=== PATIENT | male | born 1965 | race Caucasian/White ===

== ENCOUNTER 2020-03-24 10:44 | Outpatient (REF) | payer OTHER, SELFPAY ==
[2020-03-24 14:05] LABS: MANUAL DIFF FLAG NO
[2020-03-24 14:18] LABS: Basophils Percent Auto 0.7 % (0-2); Eosinophils Absolute Auto 0.2 X10*3/uL (0.0-0.4); Eosinophils Percent Auto 3.6 % (0-4); Hematocrit 40.9 % (42-52); Hemoglobin 14.2 g/dl (14.0-18.0); Imm Gran Abs Auto 0.02 X10*3/uL (0.00-0.03); Imm Gran Pct Auto 0.3 % (0.0-0.4); Lymphocytes Absolute Auto 1.7 X10*3/uL (1.2-4.9); Lymphocytes Percent Auto 27.7 % (20-40); Mean Corpuscular HGB Conc 34.7 g/dl (31.0-36.0); Mean Corpuscular Hemoglobin 32.7 pg (27.0-33.0); Mean Corpuscular Volume 94.2 fL (80-98); Mean Platelet Volume 10.2 fL (9.4-12.4); Monocytes Absolute Auto 0.4 X10*3/uL (0.1-1.2); Neutrophils Absolute Auto 3.7 X10*3/uL (2.0-8.3); Neutrophils Percent Auto 60.7 % (45-73); Platelet Count 225 X10*3/uL (160-400); Red Blood Count 4.34 X10*6/uL (4.60-5.80); Red Cell Distribution Width 11.9 % (11.0-16.0); White Blood Count 6.1 X10*3/uL (4.8-10.8)
[2020-03-24 14:34] LABS: Alanine Aminotransferase 40 U/L (0-40); Albumin Level 4.6 g/dL (3.5-5.0); Alkaline Phosphatase 69 U/L (39-117); Anion Gap 14 (12-20); Aspartate Amino Transferase 30 U/L (5-37); Bilirubin Direct 0.3 mg/dL (0.0-0.5); Bilirubin Total 0.9 mg/dL (0.0-1.0); Blood Urea Nitrogen 16 mg/dL (9-16); Calcium 8.9 mg/dL (8.4-10.2); Carbon Dioxide 29 mmol/L (22-29); Chloride 103 mmol/L (96-108); Estimated Glomerular Filt Rate > 60; Glucose Random 109 mg/dL (60-115); Potassium 4.5 mmol/l (3.3-5.1); Sodium 141 mmol/L (135-145); Total Protein 7.1 g/dL (6.5-8.0)
[2020-03-24 15:34] LABS: Vitamin B12 464 pg/mL (200-900)
[2020-03-25 08:55] LABS: SARS COV2 IgG Negative (Negative)
[2020-03-28 13:57] LABS: Vitamin D 25-OH, D2 <4 ng/mL; Vitamin D 25-OH, D3 28 ng/mL; Vitamin D 25-OH, Total 28 ng/mL (30-100)
== END 2020-03-24 10:45 | disposition home or self-care (01) ==
LOC: HO.HMGCLDS 10:44
PROVIDERS: PCP Internal Medicine; Visit Provider Internal Medicine
DX: R53.83 Other fatigue (principal); F41.1 Generalized anxiety disorder; R20.2 Paresthesia of skin; Z20.822 Contact with and (suspected) exposure to COVID-19
CPT/HCPCS: 36415; 80048; 80076; 82306; 82607; 85025; 86769

== ENCOUNTER 2020-08-25 11:07 | Outpatient (REF) | payer OTHER, SELFPAY ==
[2020-08-25 13:51] LABS: MANUAL DIFF FLAG NO
[2020-08-25 14:01] LABS: Basophils Absolute Auto 0.1 X10*3/uL (0.0-0.2); Basophils Percent Auto 0.6 % (0-2); Eosinophils Absolute Auto 0.2 X10*3/uL (0.0-0.4); Eosinophils Percent Auto 2.7 % (0-4); Hematocrit 42.8 % (42-52); Hemoglobin 14.9 g/dl (14.0-18.0); Imm Gran Abs Auto 0.04 X10*3/uL (0.00-0.03); Imm Gran Pct Auto 0.5 % (0.0-0.4); Lymphocytes Absolute Auto 1.9 X10*3/uL (1.2-4.9); Lymphocytes Percent Auto 24.3 % (20-40); Mean Corpuscular HGB Conc 34.8 g/dl (31.0-36.0); Mean Corpuscular Hemoglobin 32.7 pg (27.0-33.0); Mean Corpuscular Volume 94.1 fL (80-98); Mean Platelet Volume 10.4 fL (9.4-12.4); Monocytes Absolute Auto 0.6 X10*3/uL (0.1-1.2); Monocytes Percent Auto 8.1 % (2-11); Neutrophils Absolute Auto 4.9 X10*3/uL (2.0-8.3); Neutrophils Percent Auto 63.8 % (45-73); Platelet Count 224 X10*3/uL (160-400); Red Blood Count 4.55 X10*6/uL (4.60-5.80); Red Cell Distribution Width 12.2 % (11.0-16.0); White Blood Count 7.7 X10*3/uL (4.8-10.8)
[2020-08-25 14:31] LABS: Alanine Aminotransferase 54 U/L (0-40); Albumin Level 4.9 g/dL (3.5-5.0); Alkaline Phosphatase 81 U/L (39-117); Anion Gap 12 (12-20); Aspartate Amino Transferase 37 U/L (5-37); Blood Urea Nitrogen 20 mg/dL (9-16); Calcium 9.7 mg/dL (8.4-10.2); Carbon Dioxide 28 mmol/L (22-29); Chloride 104 mmol/L (96-108); Estimated Glomerular Filt Rate > 60; Glucose Random 102 mg/dL (60-115); Potassium 4.6 mmol/L (3.3-5.1); Sodium 139 mmol/L (135-145); Total Protein 7.7 g/dL (6.5-8.0)
[2020-08-25 14:54] LABS: TSH reflex Free T4 1.33 uIU/mL (0.32-4.0)
[2020-08-25 15:05] LABS: Vitamin B12 462 pg/mL (200-900)
[2020-09-04 18:22] LABS: Vitamin D 25-OH, D2 <4 ng/mL; Vitamin D 25-OH, D3 49 ng/mL; Vitamin D 25-OH, Total 49 ng/mL (30-100)
== END 2020-08-25 11:08 | disposition home or self-care (01) ==
LOC: HO.HMGCLDS 11:07
PROVIDERS: PCP Internal Medicine; Visit Provider Internal Medicine
DX: F41.1 Generalized anxiety disorder (principal); R20.2 Paresthesia of skin; R53.83 Other fatigue
CPT/HCPCS: 36415; 80053; 82306; 82607; 84443; 85025

== ENCOUNTER 2021-01-12 22:24 | Observation (INO) | payer OTHER, SELFPAY ==
--- NOTE | ~2021-01-12 | CT_ITS ---
EXAMINATION: CTA OF THE HEAD/NECK CLINICAL INFORMATION: Syncope status post fall COMPARISON: 11/25/2017 TECHNIQUE: A routine non contrast head CT was performed followed by a 70 mL bolus of Omnipaque 350. Subsequent multidetector helical imaging was performed of the head and neck. Delayed post contrast imaging was also performed through the head. Multiplanar reformats and MIP were also obtained. Internal carotid artery stenoses are assessed in accordance with NASCET criteria unless otherwise indicated. This CT examination was performed using dose optimization techniques as appropriate, variously including the following: *Automated exposure control *Adjustment of mA and/or kV according to patient size (this includes techniques or standardized protocols for targeted exams where dose is matched to indication/reason for exam; i.e. extremities or head) *Use of iterative reconstruction technique DLP: 2549 mGy-cm. FINDINGS: CT HEAD: There is no evidence of acute intracranial hemorrhage or territorial infarction. No abnormal mass effect or midline shift is seen. Lackey to white matter differentiation is well preserved. No extra-axial fluid collections are identified. No suspicious leptomeningeal or parenchymal enhancement on the post-contrast images. No hydrocephalus. No significant volume loss. There is no abnormal attenuation within the brain parenchyma. The osseous structures and soft tissues are normal. The mastoid air cells and visualized portions of the paranasal sinuses are well aerated. CTA NECK: The aortic arch is of normal caliber and the origins of the great vessels are patent without evidence of significant stenosis. The cervical portion of the vertebral arteries are patent bilaterally. No luminal irregularities in the common carotid arteries and the carotid bifurcations are patent bilaterally. The cervical portion of the internal carotid arteries are of normal caliber. The laryngeal structures and pharyngeal mucosal spaces are unremarkable. The oral cavity appears normal. The parotid and submandibular glands are normal. No pathologically enlarged lymph nodes. The thyroid gland is unremarkable. The lung apices are clear without evidence of pneumothorax. Spinal alignment is maintained. Mild cervical spondylosis is noted. CTA HEAD: The intradural portion of the vertebral arteries are of normal caliber. The basilar, superior cerebellar, and posterior communicating arteries are patent. The posterior, middle, and anterior cerebral arteries are of normal caliber without evidence of significant luminal irregularity. No definite intracranial aneurysms. CT/CT angio head neck IMPRESSION: 1. No acute vascular abnormality. No flow-limiting stenosis. No large vessel occlusion. 2. No acute intracranial finding.
--- NOTE | 2021-01-12 22:30 | ECG_ITS ---
Test Reason : syncope Blood Pressure : / mmHG Vent. Rate : 072 BPM Atrial Rate : 072 BPM P-R Int : 208 ms QRS Dur : 090 ms QT Int : 388 ms P-R-T Axes : 056 063 043 degrees QTc Int : 424 ms Normal sinus rhythm Normal ECG When compared with ECG of 24-NOV-2017 22:16, No significant change was found Referred By: Rhiannon Castle Electronically Signed By:TADEO GENTILE MD
[2021-01-12 22:47] VITALS: BP 126/81; PULSE 77; RESP 16; TEMP 36.6; O2SAT 98; BMI 28.5
[2021-01-12 22:51] VITALS: BP 114/75; PULSE 80; O2SAT 97
[2021-01-12 23:11] LABS: Basophils Percent Auto 0.4 % (0-2); Eosinophils Absolute Auto 0.1 X10*3/uL (0.0-0.4); Eosinophils Percent Auto 1.1 % (0-4); Hematocrit 35.7 % (42.0-52.0); Hemoglobin 12.7 g/dl (14.0-18.0); Imm Gran Abs Auto 0.03 X10*3/uL (0.00-0.03); Imm Gran Pct Auto 0.4 % (0.0-0.4); Lymphocytes Percent Auto 27.4 % (20-40); MANUAL DIFF FLAG NO; Mean Corpuscular HGB Conc 35.6 g/dl (31.0-36.0); Mean Corpuscular Hemoglobin 33.4 pg (27.0-33.0); Mean Corpuscular Volume 93.9 fL (80.0-98.0); Monocytes Absolute Auto 0.6 X10*3/uL (0.1-1.2); Monocytes Percent Auto 7.8 % (2-11); Neutrophils Absolute Auto 4.7 x10*3/uL (2.0-8.3); Neutrophils Percent Auto 62.9 % (45-73); Platelet Count 160 X10*3/uL (160-400); Red Cell Distribution Width 11.9 % (11.0-16.0); White Blood Count 7.4 X10*3/uL (4.8-10.8)
[2021-01-12 23:23] LABS: Ethanol 162 mg/dL
[2021-01-12 23:25] LABS: Alanine Aminotransferase 53 U/L (0-40); Albumin Level 4.1 g/dL (3.5-5.0); Alkaline Phosphatase 73 U/L (39-117); Anion Gap 12 (12-20); Aspartate Amino Transferase 36 U/L (5-37); Bilirubin Total 0.7 mg/dL (0.0-1.0); Blood Urea Nitrogen 15 mg/dL (9-16); Calcium 8.8 mg/dL (8.4-10.2); Carbon Dioxide 26 mmol/L (22-29); Chloride 102 mmol/L (96-108); Creatinine Clr Calc Pharmacy 87.1; Estimated Glomerular Filt Rate > 60; Glucose Random 124 mg/dL (60-115); Sodium 136 mmol/L (135-145); Total Protein 6.4 g/dL (6.5-8.0)
[2021-01-13] VITALS (7 sets, daily range): BP systolic 105–135; BP diastolic 63–88; PULSE 67–80; RESP 13–17; TEMP 36.5–36.7; O2SAT 95–100
--- NOTE | 2021-01-13 00:09 | ED_ITS ---
HPI - Syncope General Chief Complaint: Syncope Stated Complaint: sycope Time Seen by Provider: 01/12/21 22:29 Source: patient Mode of arrival: ambulatory Limitations: no limitations History of Present Illness HPI narrative: Patient with no known coronary artery disease drinks alcohol to 3 times a week had a syncope episode 3 years ago with workup negative including stress test and echo today he had few drinks felt little shaky went to the bathroom with his was outside the bathroom patient had a bowel m ovement tried to get up and collapsed hitting his head to the wall immediately opened the door and saw the patient he was very pale could not feel a pulse whole episode lasted for few minutes brought him outside patient does not remember anything for 15 minutes at this time patient alert awake x3 no seizure activity noticed patient denies any chest pain no palpitation Related Data Home Medications Medication Instructions Recorded Confirmed gabapentin 100 mg capsule 200 mg PO BEDTIME cap 03/18/20 08/24/20 Previous Rx's Medication Instructions Recorded sertraline 100 mg tablet 100 mg PO DAILY #90 tab 10/29/20 Allergies Allergy/AdvReac Type Severity Reaction Status Date / Time No Known Allergies Allergy Unknown UNKNOWN Verified 08/24/20 15:38 [NO KNOWN ALLERGIES] Review of Systems Review of Systems: Yes all other systems are reviewed and are negative [facility] Family History Family History Other Mental health disorder Substance use disorder Social History Social History Advance Directives: No Physical Exam Vital Signs: Vital Signs: Last Vital Signs Temp 97.7 F 01/13/21 00:08 Pulse 80 01/13/21 00:15 Resp 17 01/13/21 00:08 BP 120/76 01/13/21 00:15 Pulse Ox 96 01/13/21 00:08 Body Mass Index 28.5 Appearance: Alert. Oriented X3. No acute distress. Eyes: PERRLA, No Nystagmus no pallor or icterus ENT: Pharynx normal. Oral Mucosa moist Neck: Normal inspection. Neck supple. CVS: Normal heart rate and rhythm. Pulses normal. Respiratory: No respiratory distress. Equal air entry bilateral, no wheezing/rales/rhonchi Abdomen: Soft and nontender. Bowel sounds are present, no mass palpable, no CVA tenderness Skin: Skin warm and dry. Normal skin color. Normal skin turgor. Extremities: No lower extremity edema. No calf tenderness Neuro: Oriented X 3. No motor deficit. No sensory deficit.No cerebellar signs , cranial nerves II-XII intact MDM - Syncope MDM Narrative Medical decision making narrative: Patient's syncope episode etiology not very clear will admit patient to rule out cardiac arrhythmias, CT head and neck negative for any acute occlusion or stroke Lab Data Attestation: I reviewed the patient's lab results. Result diagrams: 01/12/21 23:01 01/12/21 23:01 Labs: Lab Results 01/12/21 01/12/21 01/12/21 Range/Units 23:01 23:01 23:01 WBC 7.4 (4.8-10.8) X10*3/uL RBC 3.80 L (4.60-5.80) X10*6/uL Hgb 12.7 L (14.0-18.0) g/dl Hct 35.7 L (42.0-52.0) % MCV 93.9 (80.0-98.0) fL MCH 33.4 H (27.0-33.0) pg MCHC 35.6 (31.0-36.0) g/dl RDW 11.9 (11.0-16.0) % Plt Count 160 (160-400) X10*3/uL MPV 10.0 (9.4-12.4) fL Immature Gran % (Auto) 0.4 (0.0-0.4) % Neut % (Auto) 62.9 (45-73) % Lymph % (Auto) 27.4 (20-40) % [place] % (Auto) 7.8 (2-11) % Eos % (Auto) 1.1 (0-4) % Baso % (Auto) 0.4 (0-2) % Lymph # (Auto) 2.0 (1.2-4.9) X10*3/uL [place] # (Auto) 0.6 (0.1-1.2) X10*3/uL Eos # (Auto) 0.1 (0.0-0.4) X10*3/uL Baso # (Auto) 0.0 (0.0-0.2) X10*3/uL Abs Immat Gran (auto) 0.03 (0.00-0.03) X10*3/uL Absolute Neuts (auto) 4.7 (2.0-8.3) x10*3/uL Absolute Nucleated RBC 0.000 (0.0-0.012) X10*3/uL Nucleated RBC % (auto) 0.0 (0.0-0.2) /100WBC PT (9.9-13.0) SEC INR (0.9-1.1) APTT (24.1-38.0) SEC D-Dimer NG/ML Sodium 136 (135-145) mmol/L Potassium 4.0 (3.3-5.1) mmol/L Chloride 102 (96-108) mmol/L Carbon Dioxide 26 (22-29) mmol/L Anion Gap 12 (12-20) BUN 15 (9-16) mg/dL Creatinine 1.04 (0.5-1.4) mg/dL Estim Creat Clear Calc 87.1 Estimated GFR > 60 Random Glucose 124 H (60-115) mg/dL Calcium 8.8 D (8.4-10.2) mg/dL Magnesium 1.9 (1.6-2.6) mg/dL Total Bilirubin 0.7 (0.0-1.0) mg/dL AST 36 (5-37) U/L ALT 53 H (0-40) U/L Alkaline Phosphatase 73 (39-117) U/L Troponin I High Sens (<3.5-35.0) ng/L Total Protein 6.4 L (6.5-8.0) g/dL Albumin 4.1 (3.5-5.0) g/dL Urine Color Urine Appearance Urine pH (5.0-8.0) Ur Specific [place] (1.005-1.025) Urine Protein (NEG-TRACE) MG/DL Urine Glucose (UA) (NEG) MG/DL Urine Ketones (NEG) MG/DL Urine Blood (NEG) Urine Nitrite (NEG) Ur Leukocyte Esterase (NEG) Urine Opiates Screen (Not Detect) Urine Fentanyl Screen (Not Detect) Ur Barbiturates Screen (Not Detect) Ur Phencyclidine Scrn (Not Detect) Ur Amphetamines Screen (Not Detect) U Benzodiazepines Scrn (Not Detect) Urine Cocaine Screen (Not Detect) U Marijuana (THC) Screen (Not Detect) Ethyl Alcohol 162 mg/dL COVID-19 (DORIAN) (Negative) COVID-19 Clin Com 01/13/21 01/13/21 01/13/21 Range/Units 00:43 00:43 00:43 WBC (4.8-10.8) X10*3/uL RBC (4.60-5.80) X10*6/uL Hgb (14.0-18.0) g/dl Hct (42.0-52.0) % MCV (80.0-98.0) fL MCH (27.0-33.0) pg MCHC (31.0-36.0) g/dl RDW (11.0-16.0) % Plt Count (160-400) X10*3/uL MPV (9.4-12.4) fL Immature Gran % (Auto) (0.0-0.4) % Neut % (Auto) (45-73) % Lymph % (Auto) (20-40) % [place] % (Auto) (2-11) % Eos % (Auto) (0-4) % Baso % (Auto) (0-2) % Lymph # (Auto) (1.2-4.9) X10*3/uL [place] # (Auto) (0.1-1.2) X10*3/uL Eos # (Auto) (0.0-0.4) X10*3/uL Baso # (Auto) (0.0-0.2) X10*3/uL Abs Immat Gran (auto) (0.00-0.03) X10*3/uL Absolute Neuts (auto) (2.0-8.3) x10*3/uL Absolute Nucleated RBC (0.0-0.012) X10*3/uL Nucleated RBC % (auto) (0.0-0.2) /100WBC PT 11.2 (9.9-13.0) SEC INR 1.0 (0.9-1.1) APTT 32.3 (24.1-38.0) SEC D-Dimer < 200 NG/ML Sodium (135-145) mmol/L Potassium (3.3-5.1) mmol/L Chloride (96-108) mmol/L Carbon Dioxide (22-29) mmol/L Anion Gap (12-20) BUN (9-16) mg/dL Creatinine (0.5-1.4) mg/dL Estim Creat Clear Calc Estimated GFR Random Glucose (60-115) mg/dL Calcium (8.4-10.2) mg/dL Magnesium (1.6-2.6) mg/dL Total Bilirubin (0.0-1.0) mg/dL AST (5-37) U/L ALT (0-40) U/L Alkaline Phosphatase (39-117) U/L Troponin I High Sens < 3.5 (<3.5-35.0) ng/L Total Protein (6.5-8.0) g/dL Albumin (3.5-5.0) g/dL Urine Color Urine Appearance Urine pH (5.0-8.0) Ur Specific [place] (1.005-1.025) Urine Protein (NEG-TRACE) MG/DL Urine Glucose (UA) (NEG) MG/DL Urine Ketones (NEG) MG/DL Urine Blood (NEG) Urine Nitrite (NEG) Ur Leukocyte Esterase (NEG) Urine Opiates Screen (Not Detect) Urine Fentanyl Screen (Not Detect) Ur Barbiturates Screen (Not Detect) Ur Phencyclidine Scrn (Not Detect) Ur Amphetamines Screen (Not Detect) U Benzodiazepines Scrn (Not Detect) Urine Cocaine Screen (Not Detect) U Marijuana (THC) Screen (Not Detect) Ethyl Alcohol mg/dL COVID-19 (DORIAN) Negative (Negative) COVID-19 Clin Com See Note 01/13/21 01/13/21 Range/Units 01:16 01:16 WBC (4.8-10.8) X10*3/uL RBC (4.60-5.80) X10*6/uL Hgb (14.0-18.0) g/dl Hct (42.0-52.0) % MCV (80.0-98.0) fL MCH (27.0-33.0) pg MCHC (31.0-36.0) g/dl RDW (11.0-16.0) % Plt Count (160-400) X10*3/uL MPV (9.4-12.4) fL Immature Gran % (Auto) (0.0-0.4) % Neut % (Auto) (45-73) % Lymph % (Auto) (20-40) % [place] % (Auto) (2-11) % Eos % (Auto) (0-4) % Baso % (Auto) (0-2) % Lymph # (Auto) (1.2-4.9) X10*3/uL [place] # (Auto) (0.1-1.2) X10*3/uL Eos # (Auto) (0.0-0.4) X10*3/uL Baso # (Auto) (0.0-0.2) X10*3/uL Abs Immat Gran (auto) (0.00-0.03) X10*3/uL Absolute Neuts (auto) (2.0-8.3) x10*3/uL Absolute Nucleated RBC (0.0-0.012) X10*3/uL Nucleated RBC % (auto) (0.0-0.2) /100WBC PT (9.9-13.0) SEC INR (0.9-1.1) APTT (24.1-38.0) SEC D-Dimer NG/ML Sodium (135-145) mmol/L Potassium (3.3-5.1) mmol/L Chloride (96-108) mmol/L Carbon Dioxide (22-29) mmol/L Anion Gap (12-20) BUN (9-16) mg/dL Creatinine (0.5-1.4) mg/dL Estim Creat Clear Calc Estimated GFR Random Glucose (60-115) mg/dL Calcium (8.4-10.2) mg/dL Magnesium (1.6-2.6) mg/dL Total Bilirubin (0.0-1.0) mg/dL AST (5-37) U/L ALT (0-40) U/L Alkaline Phosphatase (39-117) U/L Troponin I High Sens (<3.5-35.0) ng/L Total Protein (6.5-8.0) g/dL Albumin (3.5-5.0) g/dL Urine Color YELLOW Urine Appearance CLEAR Urine pH 6.0 (5.0-8.0) Ur Specific [place] 1.010 (1.005-1.025) Urine Protein NEG (NEG-TRACE) MG/DL Urine Glucose (UA) NEG (NEG) MG/DL Urine Ketones NEG (NEG) MG/DL Urine Blood NEG (NEG) Urine Nitrite NEG (NEG) Ur Leukocyte Esterase NEG (NEG) Urine Opiates Screen Not Detected (Not Detect) Urine Fentanyl Screen Not Detected (Not Detect) Ur Barbiturates Screen Not Detected (Not Detect) Ur Phencyclidine Scrn Not Detected (Not Detect) Ur Amphetamines Screen Not Detected (Not Detect) U Benzodiazepines Scrn Not Detected (Not Detect) Urine Cocaine Screen Not Detected (Not Detect) U Marijuana (THC) Screen POSITIVE H (Not Detect) Ethyl Alcohol mg/dL COVID-19 (DORIAN) (Negative) COVID-19 Clin Com ECG Data Attestation: I personally reviewed and interpreted this ECG as follows: Interpretation: Normal sinus rhythm heart rate 72 beats per minute normal intervals normal axis no acute ischemia Discharge Plan Discharge Clinical Impression: Syncope and collapse, Alcohol abuse with intoxication Patient Disposition: Admitted As Inpatient
[2021-01-13] MEDS: 0.9 % Sodium Chloride 1,000 ML 999 ML IVCONT (00:24)
[2021-01-13 00:32] LABS: Magnesium 1.9 mg/dL (1.6-2.6)
--- NOTE | 2021-01-13 00:52 | PC.NURSE ---
LABS DRAWN TO LAB. PT UP TO RESTROOM FOR URINE SAMPLE TO LAB. PT AWAITING FOR CT/XRAY. PT DENIES ANY COMPLAINTS AT THIS TIME. WILL CONTINUE TO MONITOR PT.
[2021-01-13 01:06] LABS: Prothrombin Time 11.2 SEC (9.9-13.0)
[2021-01-13 01:09] LABS: Partial Thromboplastin Time 32.3 SEC (24.1-38.0)
[2021-01-13 01:11] LABS: COVID-19 Test Negative (Negative); D Dimer < 200 NG/ML
[2021-01-13 01:18] LABS: Troponin-I High Sensitivity < 3.5 ng/L (<3.5-35.0)
[2021-01-13] MEDS: iohexoL 350 MG/ML 100 ML INFUS..BTL 70 ML IV (01:34)
[2021-01-13 01:38] LABS: Appearance Urine CLEAR; Color Urine YELLOW; Glucose Urine UA NEG (NEG); Leukocyte Esterase Urine NEG (NEG); Nitrite Urine NEG (NEG); UACC Culture Trigger NO; Urine Blood NEG (NEG); Urine Ketones NEG (NEG); Urine Protein NEG (NEG-TRACE)
[2021-01-13 02:10] LABS: Amphetamine Screen Urine Not Detected (Not Detect); Barbiturates, Urine Not Detected (Not Detect); Benzodiazepines Screen Urine Not Detected (Not Detect); Cannabinoid Screen Urine POSITIVE (Not Detect); Cocaine Screen Urine Not Detected (Not Detect); Fentanyl, urine Not Detected (Not Detect); Opiate Screen Urine Not Detected (Not Detect); Phencyclidine Screen Urine Not Detected (Not Detect)
--- NOTE | 2021-01-13 02:10 | PM.IMHP ---
History of Present Illness Date of Service: 01/13/21 Chief Complaint: Syncope 55-year-old male with a past medical history of depression, tobacco dependence, occasional alcohol use presented to the hospital today with a chief complaint of syncope. Patient reported that today he had about 5 years and followed by he was not feeling well subsequently went to the bathroom for bowel movement after having a bowel movement and when he stood up he felt lightheaded, dizzy, nauseous and then collapsed, hit his head; denies any seizure-like activity. Denied any chest pain before or after the episode. Subsequently EMS was called in came to the hospital for further evaluation. Patient denies any fever chills cough. Denies any GI or symptoms. Review of all other systems is negative except mentioned above ER course: Per ER team patient's EKG was nonischemic; troponins were negative; labs were benign; CT of the head and neck showed no acute findings; admitted to the hospital for further management PMFSH Family History Other Mental health disorder Substance use disorder Pertinent family history: Father had heart disease Social History Advance Directives: No Meds Allergies Allergy/AdvReac Type Severity Reaction Status Date / Time No Known Allergies Allergy Unknown UNKNOWN Verified 08/24/20 15:38 [NO KNOWN ALLERGIES] Active Medications: Current Medications Acetaminophen (Acetaminophen 325 Mg Tablet) 650 mg PO Q6H PRN PRN Reason: Pain, Mild (Pain Scale 1-3) Sodium Chloride (Ns) 1,000 mls @ 100 mls/hr IVCONT .Q10H [facility] Melatonin (Melatonin 3 Mg Tablet) 6 mg PO BEDTIME PRN PRN Reason: Insomnia Senna (Sennosides 8.6 Mg Tablet) 17.2 mg PO BEDTIME PRN PRN Reason: Constipation Sodium Chloride (0.9 % Sodium Chloride Flush 3 Ml Syringe) 3 ml IVFLUSH QSHIFT [facility] Home Medications Medication Instructions Recorded Confirmed Last Taken Type gabapentin 100 mg capsule 200 mg PO BEDTIME cap 03/18/20 08/24/20 Unknown History Physical Exam Vital Signs and Narrative: Vital Signs: Last Vital Signs Temp 97.7 F 01/13/21 00:08 Pulse 80 01/13/21 00:15 Resp 17 01/13/21 00:08 BP 120/76 01/13/21 00:15 Pulse Ox 96 01/13/21 00:08 Body Mass Index 28.5 Gen: Appears be in no acute distress HEENT: NCAT, Moist mucosa. Pulmonary: Vesicular breath sounds, fair air entry CVS: Regular Abdomen: BS+, Soft, Nontender Extremities: Warm well perfused Neuro: Alert and awake. Grossly nonfocal Results Labs CBC and Chem 7: 01/12/21 23:01 01/12/21 23:01 Labs: Laboratory Results - last 24 hr 01/12/21 01/12/21 01/12/21 23:01 23:01 23:01 MCV 93.9 MCH 33.4 H MCHC 35.6 RDW 11.9 Plt Count 160 MPV 10.0 Immature Gran % (Auto) 0.4 Neut % (Auto) 62.9 Lymph % (Auto) 27.4 [place] % (Auto) 7.8 Eos % (Auto) 1.1 Baso % (Auto) 0.4 Lymph # (Auto) 2.0 [place] # (Auto) 0.6 Eos # (Auto) 0.1 Baso # (Auto) 0.0 Abs Immat Gran (auto) 0.03 Absolute Neuts (auto) 4.7 Absolute Nucleated RBC 0.000 Nucleated RBC % (auto) 0.0 PT INR APTT D-Dimer Anion Gap 12 Estim Creat Clear Calc 87.1 Estimated GFR > 60 Random Glucose 124 H Calcium 8.8 D Magnesium 1.9 Total Bilirubin 0.7 AST 36 ALT 53 H Alkaline Phosphatase 73 Troponin I High Sens Total Protein 6.4 L Albumin 4.1 Urine Color Urine Appearance Urine pH Ur Specific [place] Urine Protein Urine Glucose (UA) Urine Ketones Urine Blood Urine Nitrite Ur Leukocyte Esterase Urine Opiates Screen Urine Fentanyl Screen Ur Barbiturates Screen Ur Phencyclidine Scrn Ur Amphetamines Screen U Benzodiazepines Scrn Urine Cocaine Screen U Marijuana (THC) Screen Ethyl Alcohol 162 COVID-19 (DORIAN) COVID-19 Clin Com 01/13/21 01/13/21 01/13/21 00:43 00:43 00:43 MCV MCH MCHC RDW Plt Count MPV Immature Gran % (Auto) Neut % (Auto) Lymph % (Auto) [place] % (Auto) Eos % (Auto) Baso % (Auto) Lymph # (Auto) [place] # (Auto) Eos # (Auto) Baso # (Auto) Abs Immat Gran (auto) Absolute Neuts (auto) Absolute Nucleated RBC Nucleated RBC % (auto) PT 11.2 INR 1.0 APTT 32.3 D-Dimer < 200 Anion Gap Estim Creat Clear Calc Estimated GFR Random Glucose Calcium Magnesium Total Bilirubin AST ALT Alkaline Phosphatase Troponin I High Sens < 3.5 Total Protein Albumin Urine Color Urine Appearance Urine pH Ur Specific [place] Urine Protein Urine Glucose (UA) Urine Ketones Urine Blood Urine Nitrite Ur Leukocyte Esterase Urine Opiates Screen Urine Fentanyl Screen Ur Barbiturates Screen Ur Phencyclidine Scrn Ur Amphetamines Screen U Benzodiazepines Scrn Urine Cocaine Screen U Marijuana (THC) Screen Ethyl Alcohol COVID-19 (DORIAN) Negative COVID-19 Outright Com See Note 01/13/21 01/13/21 01:16 01:16 MCV MCH MCHC RDW Plt Count MPV Immature Gran % (Auto) Neut % (Auto) Lymph % (Auto) [place] % (Auto) Eos % (Auto) Baso % (Auto) Lymph # (Auto) [place] # (Auto) Eos # (Auto) Baso # (Auto) Abs Immat Gran (auto) Absolute Neuts (auto) Absolute Nucleated RBC Nucleated RBC % (auto) PT INR APTT D-Dimer Anion Gap Estim Creat Clear Calc Estimated GFR Random Glucose Calcium Magnesium Total Bilirubin AST ALT Alkaline Phosphatase Troponin I High Sens Total Protein Albumin Urine Color YELLOW Urine Appearance CLEAR Urine pH 6.0 Ur Specific [place] 1.010 Urine Protein NEG Urine Glucose (UA) NEG Urine Ketones NEG Urine Blood NEG Urine Nitrite NEG Ur Leukocyte Esterase NEG Urine Opiates Screen Not Detected Urine Fentanyl Screen Not Detected Ur Barbiturates Screen Not Detected Ur Phencyclidine Scrn Not Detected Ur Amphetamines Screen Not Detected U Benzodiazepines Scrn Not Detected Urine Cocaine Screen Not Detected U Marijuana (THC) Screen POSITIVE H Ethyl Alcohol COVID-19 (DORIAN) COVID-19 Clin Com Imaging Radiologist's Impressions: Impressions Head/Neck CTA 01/13/21 00:11 IMPRESSION: 1. No acute vascular abnormality. No flow-limiting stenosis. No large vessel occlusion. 2. No acute intracranial finding. Assessment and Plan (1) Syncope and collapse: Status: Acute 55-year-old male with a past medical history of depression, tobacco dependence, occasional alcohol use presented to the hospital today with a chief complaint of syncope. Syncope: Fall precautions Exam nonfocal CT angio head and neck showed no acute findings EKG nonischemic Troponin negative Echocardiogram Cardiology consult Alcohol use: Patient denies drinking of: Regular basis Tobacco dependence: Counseled on smoking cessation. DVT prophylaxis: SCD boots Code status: Full code Quality Stroke Does the patient have a stroke diagnosis?: No VTE Prior VTE?: No VTE Risk Level:: Medical - low VTE Device Contraindication: N/A - Device Ordered VTE Drug Contraindication: Treatment Not Indicated
[2021-01-13 03:38] LABS: MANUAL DIFF FLAG NO
[2021-01-13 03:39] LABS: Basophils Percent Auto 0.5 % (0-2); Eosinophils Absolute Auto 0.1 X10*3/uL (0.0-0.4); Hematocrit 35.1 % (42.0-52.0); Hemoglobin 12.5 g/dl (14.0-18.0); Imm Gran Abs Auto 0.03 X10*3/uL (0.00-0.03); Imm Gran Pct Auto 0.4 % (0.0-0.4); Lymphocytes Absolute Auto 1.7 X10*3/uL (1.2-4.9); Lymphocytes Percent Auto 21.6 % (20-40); Mean Corpuscular HGB Conc 35.6 g/dl (31.0-36.0); Mean Corpuscular Hemoglobin 33.4 pg (27.0-33.0); Mean Corpuscular Volume 93.9 fL (80.0-98.0); Mean Platelet Volume 9.9 fL (9.4-12.4); Monocytes Absolute Auto 0.5 X10*3/uL (0.1-1.2); Monocytes Percent Auto 6.1 % (2-11); Neutrophils Absolute Auto 5.5 x10*3/uL (2.0-8.3); Neutrophils Percent Auto 70.4 % (45-73); Platelet Count 176 X10*3/uL (160-400); Red Blood Count 3.74 X10*6/uL (4.60-5.80); Red Cell Distribution Width 11.9 % (11.0-16.0); White Blood Count 7.8 X10*3/uL (4.8-10.8)
[2021-01-13 03:51] LABS: Anion Gap 14 (12-20); Blood Urea Nitrogen 13 mg/dL (9-16); Calcium 8.7 mg/dL (8.4-10.2); Carbon Dioxide 22 mmol/L (22-29); Chloride 107 mmol/L (96-108); Creatinine Clr Calc Pharmacy 110.5; Estimated Glomerular Filt Rate > 60; Glucose Random 110 mg/dL (60-115); Potassium 4.5 mmol/L (3.3-5.1); Sodium 138 mmol/L (135-145)
[2021-01-13 03:59] LABS: Troponin-I High Sensitivity < 3.5 ng/L (<3.5-35.0)
[2021-01-13] MEDS: 0.9 % Sodium Chloride 1,000 ML 100 ML IVCONT (04:17)
--- NOTE | 2021-01-13 07:10 | PC.NURSE ---
this rn took over from mireya gibson at 0700- pt sleeping in bed at this time. resp even and unlabored. pt aware of plan of care for admission.
[2021-01-13] MEDS: Sertraline HCL 100 MG TABLET PO (08:31)
--- NOTE | 2021-01-13 10:14 | P.CONCA_ITS ---
History of Present Illness History of Present Illness Date of Service: 01/13/21 Chief complaint: Syncope Narrative: This is a cardiology consultation regarding a syncopal episode. Patient does not have any known cardiac issues like coronary disease and myocardial infarction. He does drink frequently, but denies daily drinking. Yesterday apparently had a 5-6 beers. Subsequently, he was sitting and watching TV. That he did not feel good and had some abdominal discomfort. He went to the toilet and sitting on the commode. That felt lightheaded, nauseous and slumped to 1 side. He does not recall much and states that EMS was called by his and brought to the hospital. Today he states that he is back to normal self. Denies any anginal-type symptoms of shortness of breath or any other cardiac complaints. Otherwise, he has unrestricted physical activity without any limitations. Review of Systems Review of Systems: Yes all other systems are reviewed and are negative Cardiovascular: Cardiovascular: Reports as per HPI, Reports no additional cardiovascular complaints, Denies acrocyanosis, Denies cool extremities, Denies painful fingertips, Denies chest pain, Denies chest pain at rest, Denies diaphoresis, Reports syncope, Denies irregular heart rhythm, Denies claudication, Denies leg edema, Reports lightheadedness, Denies palpitations and Denies dyspnea Respiratory: Respiratory: Denies dyspnea Neurologic: Reports syncope Endocrine: Endocrine: Denies palpitations [facility] Family History Family History (Updated 01/13/21 @ 10:18 by Tyrone Quigley MD) Father CAD (coronary artery disease) Other Mental health disorder Substance use disorder Social History Social History (Updated 01/13/21 @ 10:17 by Tyrone Quigley MD) Alcohol intake: current Alcohol intake frequency: 3 or more drinks per day Substance Use Type: Marijuana Advance Directives: No Meds Allergies Allergy/AdvReac Type Severity Reaction Status Date / Time No Known Allergies Allergy Unknown UNKNOWN Verified 08/24/20 15:38 [NO KNOWN ALLERGIES] Active Medications: Current Medications Acetaminophen (Acetaminophen 325 Mg Tablet) 650 mg PO Q6H PRN PRN Reason: Pain, Mild (Pain Scale 1-3) Sodium Chloride (Ns) 1,000 mls @ 100 mls/hr IVCONT .Q10H [facility] Last Admin: 01/13/21 04:17 Dose: 100 mls/hr Documented by: Melatonin (Melatonin 3 Mg Tablet) 6 mg PO BEDTIME PRN PRN Reason: Insomnia Senna (Sennosides 8.6 Mg Tablet) 17.2 mg PO BEDTIME PRN PRN Reason: Constipation Sertraline HCl (Sertraline Hcl 100 Mg Tablet) 100 mg PO DAILY [facility] Last Admin: 01/13/21 08:31 Dose: 100 mg Documented by: Sodium Chloride (0.9 % Sodium Chloride Flush 3 Ml Syringe) 3 ml IVFLUSH QSHIFT [facility] Last Admin: 01/13/21 07:42 Dose: Not Given Documented by: Physical Exam Vital Signs: Vital Signs: Last Vital Signs Temp 98.0 F 01/13/21 08:08 Pulse 75 01/13/21 08:08 Resp 13 01/13/21 08:08 BP 134/88 01/13/21 08:08 Pulse Ox 96 01/13/21 08:08 Body Mass Index 28.5 Const: General: cooperative and no acute distress HENMT: Other: Unremarkable Neck: Neck: Yes normal visual inspection Chest: Chest palpation & inspection: normal inspection of the chest Resp: Auscultation: clear to auscultation bilaterally, no crackles and no wheezes Cardio: Jugular venous distension: no JVD Palpation: normal PMI Heart sounds: S1 normal heart sound present, S2 normal heart sound present, no gallops, no murmurs and no rubs GI: Palpation (GI): Soft to palpation Back/Spine/Pelvis: Other: unremarkable Skin: General skin exam: no rashes or lesions noted Neuro: Cranial nerves: Yes Other cranial nerve findings present Extrem: General: Yes no clubbing, cyanosis or edema Psych: Mental Status: other Results Labs and Meds Result diagrams: 01/13/21 03:30 01/13/21 03:30 Lab results: Laboratory Results - last 24 hr 01/12/21 01/12/21 01/12/21 23:01 23:01 23:01 WBC 7.4 RBC 3.80 L Hgb 12.7 L Hct 35.7 L MCV 93.9 MCH 33.4 H MCHC 35.6 RDW 11.9 Plt Count 160 MPV 10.0 Immature Gran % (Auto) 0.4 Neut % (Auto) 62.9 Lymph % (Auto) 27.4 [place] % (Auto) 7.8 Eos % (Auto) 1.1 Baso % (Auto) 0.4 Lymph # (Auto) 2.0 [place] # (Auto) 0.6 Eos # (Auto) 0.1 Baso # (Auto) 0.0 Abs Immat Gran (auto) 0.03 Absolute Neuts (auto) 4.7 Absolute Nucleated RBC 0.000 Nucleated RBC % (auto) 0.0 PT INR APTT D-Dimer Sodium 136 Potassium 4.0 Chloride 102 Carbon Dioxide 26 Anion Gap 12 BUN 15 Creatinine 1.04 Estim Creat Clear Calc 87.1 Estimated GFR > 60 Random Glucose 124 H Calcium 8.8 D Magnesium 1.9 Total Bilirubin 0.7 AST 36 ALT 53 H Alkaline Phosphatase 73 Troponin I High Sens Total Protein 6.4 L Albumin 4.1 Urine Color Urine Appearance Urine pH Ur Specific [place] Urine Protein Urine Glucose (UA) Urine Ketones Urine Blood Urine Nitrite Ur Leukocyte Esterase Urine Opiates Screen Urine Fentanyl Screen Ur Barbiturates Screen Ur Phencyclidine Scrn Ur Amphetamines Screen U Benzodiazepines Scrn Urine Cocaine Screen U Marijuana (THC) Screen Ethyl Alcohol 162 COVID-19 (DORIAN) COVID-19 [place] Com 01/13/21 01/13/21 01/13/21 00:43 00:43 00:43 WBC RBC Hgb Hct MCV MCH MCHC RDW Plt Count MPV Immature Gran % (Auto) Neut % (Auto) Lymph % (Auto) [place] % (Auto) Eos % (Auto) Baso % (Auto) Lymph # (Auto) [place] # (Auto) Eos # (Auto) Baso # (Auto) Abs Immat Gran (auto) Absolute Neuts (auto) Absolute Nucleated RBC Nucleated RBC % (auto) PT 11.2 INR 1.0 APTT 32.3 D-Dimer < 200 Sodium Potassium Chloride Carbon Dioxide Anion Gap BUN Creatinine Estim Creat Clear Calc Estimated GFR Random Glucose Calcium Magnesium Total Bilirubin AST ALT Alkaline Phosphatase Troponin I High Sens < 3.5 Total Protein Albumin Urine Color Urine Appearance Urine pH Ur Specific [place] Urine Protein Urine Glucose (UA) Urine Ketones Urine Blood Urine Nitrite Ur Leukocyte Esterase Urine Opiates Screen Urine Fentanyl Screen Ur Barbiturates Screen Ur Phencyclidine Scrn Ur Amphetamines Screen U Benzodiazepines Scrn Urine Cocaine Screen U Marijuana (THC) Screen Ethyl Alcohol COVID-19 (DORIAN) Negative COVID-19 [place] Com See Note 01/13/21 01/13/21 01/13/21 01:16 01:16 03:30 WBC RBC Hgb Hct MCV MCH MCHC RDW Plt Count MPV Immature Gran % (Auto) Neut % (Auto) Lymph % (Auto) [place] % (Auto) Eos % (Auto) Baso % (Auto) Lymph # (Auto) [place] # (Auto) Eos # (Auto) Baso # (Auto) Abs Immat Gran (auto) Absolute Neuts (auto) Absolute Nucleated RBC Nucleated RBC % (auto) PT INR APTT D-Dimer Sodium Potassium Chloride Carbon Dioxide Anion Gap BUN Creatinine Estim Creat Clear Calc Estimated GFR Random Glucose Calcium Magnesium Total Bilirubin AST ALT Alkaline Phosphatase Troponin I High Sens < 3.5 Total Protein Albumin Urine Color YELLOW Urine Appearance CLEAR Urine pH 6.0 Ur Specific [place] 1.010 Urine Protein NEG Urine Glucose (UA) NEG Urine Ketones NEG Urine Blood NEG Urine Nitrite NEG Ur Leukocyte Esterase NEG Urine Opiates Screen Not Detected Urine Fentanyl Screen Not Detected Ur Barbiturates Screen Not Detected Ur Phencyclidine Scrn Not Detected Ur Amphetamines Screen Not Detected U Benzodiazepines Scrn Not Detected Urine Cocaine Screen Not Detected U Marijuana (THC) Screen POSITIVE H Ethyl Alcohol COVID-19 (DORIAN) COVID-19 Clin Com 01/13/21 01/13/21 03:30 03:30 WBC 7.8 RBC 3.74 L Hgb 12.5 L Hct 35.1 L MCV 93.9 MCH 33.4 H MCHC 35.6 RDW 11.9 Plt Count 176 MPV 9.9 Immature Gran % (Auto) 0.4 Neut % (Auto) 70.4 Lymph % (Auto) 21.6 [place] % (Auto) 6.1 Eos % (Auto) 1.0 Baso % (Auto) 0.5 Lymph # (Auto) 1.7 [place] # (Auto) 0.5 Eos # (Auto) 0.1 Baso # (Auto) 0.0 Abs Immat Gran (auto) 0.03 Absolute Neuts (auto) 5.5 Absolute Nucleated RBC 0.000 Nucleated RBC % (auto) 0.0 PT INR APTT D-Dimer Sodium 138 Potassium 4.5 Chloride 107 Carbon Dioxide 22 Anion Gap 14 BUN 13 Creatinine 0.82 Estim Creat Clear Calc 110.5 Estimated GFR > 60 Random Glucose 110 Calcium 8.7 Magnesium Total Bilirubin AST ALT Alkaline Phosphatase Troponin I High Sens Total Protein Albumin Urine Color Urine Appearance Urine pH Ur Specific [place] Urine Protein Urine Glucose (UA) Urine Ketones Urine Blood Urine Nitrite Ur Leukocyte Esterase Urine Opiates Screen Urine Fentanyl Screen Ur Barbiturates Screen Ur Phencyclidine Scrn Ur Amphetamines Screen U Benzodiazepines Scrn Urine Cocaine Screen U Marijuana (THC) Screen Ethyl Alcohol COVID-19 (DORIAN) COVID-19 Clin Com Imaging Radiologist's impression: Impressions Head/Neck CTA 01/13/21 00:11 IMPRESSION: 1. No acute vascular abnormality. No flow-limiting stenosis. No large vessel occlusion. 2. No acute intracranial finding. Assessment and Plan (1) Syncope and collapse: Status: Acute (2) Alcohol abuse with intoxication: Status: Acute EKG with sinus rhythm at 72/Min; no significant ST-T changes and otherwise unremarkable. High sensitive troponin less than 3.5. Tox screen positive for marijuana. Alcohol level 162. Telemetry so far unremarkable. Overall, possibly vasovagal +/-effects of alcohol. Doubt any structural cardiac disease or Chris arrhythmias. May be discharged home. Outpatient echocardiogram can be arranged with follow-up. Procedures Date of Service Date of Service: 01/13/21
--- NOTE | 2021-01-13 11:35 | P.DS_ITS ---
DS: Providers Provider Date of Service: 01/13/21 <HAWA Daniels - Last Filed: 01/13/21 11:43> Date of admission: 01/13/21 02:08 <HAWA Daniels - Last Filed: 01/13/21 11:43> Date of discharge: 01/13/21 <HAWA Daniels - Last Filed: 01/13/21 11:43> Primary care physician: Dirk Cardoza MD <HAWA Daniels - Last Filed: 01/13/21 11:43> Consults: 01/13/21 02:08 Consult to Cardiology Routine Consulting Provider: Tyrone Quigley Reason for consultation: syncope <HAWA Daniels - Last Filed: 01/13/21 11:43> Attending physician on discharge: Danny rAaiza <HAWA Daniels - Last Filed: 01/13/21 11:43> Discharging clinician: Liset Benitez <HAWA Daniels - Last Filed: 01/13/21 11:43> DS: Diagnosis Discharge Diagnosis (1) Syncope and collapse: Status: Acute <HAWA Daniels - Last Filed: 01/13/21 11:43> (2) Alcohol abuse with intoxication: Status: Acute <HAWA Daniels - Last Filed: 01/13/21 11:43> DS: Summary Hospital Course Hospital Course: From H&P on day of admission 55-year-old male with a past medical history of depression, tobacco dependence, occasional alcohol use presented to the hospital today with a chief complaint of syncope. Patient reported that today he had about 5 years and followed by he was not feeling well subsequently went to the bathroom for bowel movement after having a bowel movement and when he stood up he felt lightheaded, dizzy, nauseous and then collapsed, hit his head; denies any seizure-like activity.? Denied any chest pain before or after the episode.? Subsequently EMS was called in came to the hospital for further evaluation. Patient denies any fever chills cough. Denies any GI or symptoms. Review of all other systems is negative except mentioned above ER course: Per ER team patient's EKG was nonischemic; troponins were negative; labs were benign; CT of the head and neck showed no acute findings; admitted to the hospital for further management Syncope. Patient was admitted to telemetry unit due to episode of syncope. Orthostatic blood pressures were checked and were unremarkable. He was seen in consultation by Cardiology. EKG with sinus rhythm at 72/Min; no significant ST-T changes and otherwise unremarkable.? High sensitive troponin less than 3.5.? Tox screen positive for marijuana.? Alcohol level 162. Telemetry so far unremarkable.? Overall, possibly vasovagal +/-effects of alcohol.? Doubt any structural cardiac disease or Chris arrhythmias.? Outpatient echocardiogram can be arranged with follow-up. Attending Attestation: I have personally seen and examined the patient independently, reviewed the NPP history, exam and?MDM and agree with the assessment and discharge plan as?written above. <HAWA Daniels - Last Filed: 01/13/21 11:43> Time Spent with Patient Time attestation: Total time spent providing and/or coordinating discharge services: <HAWA Daniels Last Filed: 01/13/21 11:43> Discharge coordination time: Greater than 30 minutes <HAWA Daniels Last Filed: 01/13/21 11:43> Quality: Stroke Does the patient have a stroke diagnosis?: No <HAWA Daniels Last Filed: 01/13/21 11:43> Physical Exam Vital Signs: Vital Signs: Last Vital Signs Temp 98.0 F 01/13/21 08:08 Pulse 75 01/13/21 08:08 Resp 13 01/13/21 08:08 BP 134/88 01/13/21 08:08 Pulse Ox 96 01/13/21 08:08 Body Mass Index 28.5 <HAWA Daniels Last Filed: 01/13/21 11:43> Const: Nutritional Appearance: well nourished <AHWA Daniels Last Filed: 01/13/21 11:43> Orientation/consciousness: patient oriented x3 <HAWA Daniels Last Filed: 01/13/21 11:43> HENMT: Head: Yes normocephalic and Yes atraumatic <HAWA Daniels - Last Filed: 01/13/21 11:43> Eyes: Sclerae: sclerae normal <HAWA Daniels - Last Filed: 01/13/21 11:43> Resp: Effort & Inspection: normal respiratory effort and no respiratory distress <HAWA Daniels - Last Filed: 01/13/21 11:43> Cardio: Rate: regular rate <HAWA Daniels - Last Filed: 01/13/21 11:43> Rhythm: regular rhythm <HAWA Daniels - Last Filed: 01/13/21 11:43> GI: Palpation (GI): Soft to palpation and nontender <HAWA Daniels - Last Filed: 01/13/21 11:43> Neuro: General: patient oriented x3 <HAWA Daniels - Last Filed: 01/13/21 11:43> Cranial nerves: Yes CN's II-XII intact bilaterally and Yes Bilaterally intact EOM present <HAWA Daniels - Last Filed: 01/13/21 11:43> DS: Data Data Completed and Pending Labs on day of discharge: Laboratory Results - last 24 hr 01/12/21 01/12/21 01/12/21 23:01 23:01 23:01 WBC 7.4 RBC 3.80 L Hgb 12.7 L Hct 35.7 L MCV 93.9 MCH 33.4 H MCHC 35.6 RDW 11.9 Plt Count 160 MPV 10.0 Immature Gran % (Auto) 0.4 Neut % (Auto) 62.9 Lymph % (Auto) 27.4 [place] % (Auto) 7.8 Eos % (Auto) 1.1 Baso % (Auto) 0.4 Lymph # (Auto) 2.0 [place] # (Auto) 0.6 Eos # (Auto) 0.1 Baso # (Auto) 0.0 Abs Immat Gran (auto) 0.03 Absolute Neuts (auto) 4.7 Absolute Nucleated RBC 0.000 Nucleated RBC % (auto) 0.0 PT INR APTT D-Dimer Sodium 136 Potassium 4.0 Chloride 102 Carbon Dioxide 26 Anion Gap 12 BUN 15 Creatinine 1.04 Estim Creat Clear Calc 87.1 Estimated GFR > 60 Random Glucose 124 H Calcium 8.8 D Magnesium 1.9 Total Bilirubin 0.7 AST 36 ALT 53 H Alkaline Phosphatase 73 Troponin I High Sens Total Protein 6.4 L Albumin 4.1 Urine Color Urine Appearance Urine pH Ur Specific [place] Urine Protein Urine Glucose (UA) Urine Ketones Urine Blood Urine Nitrite Ur Leukocyte Esterase Urine Opiates Screen Urine Fentanyl Screen Ur Barbiturates Screen Ur Phencyclidine Scrn Ur Amphetamines Screen U Benzodiazepines Scrn Urine Cocaine Screen U Marijuana (THC) Screen Ethyl Alcohol 162 COVID-19 (DORIAN) COVID-19 Clin Com 01/13/21 01/13/21 01/13/21 00:43 00:43 00:43 WBC RBC Hgb Hct MCV MCH MCHC RDW Plt Count MPV Immature Gran % (Auto) Neut % (Auto) Lymph % (Auto) [place] % (Auto) Eos % (Auto) Baso % (Auto) Lymph # (Auto) [place] # (Auto) Eos # (Auto) Baso # (Auto) Abs Immat Gran (auto) Absolute Neuts (auto) Absolute Nucleated RBC Nucleated RBC % (auto) PT 11.2 INR 1.0 APTT 32.3 D-Dimer < 200 Sodium Potassium Chloride Carbon Dioxide Anion Gap BUN Creatinine Estim Creat Clear Calc Estimated GFR Random Glucose Calcium Magnesium Total Bilirubin AST ALT Alkaline Phosphatase Troponin I High Sens < 3.5 Total Protein Albumin Urine Color Urine Appearance Urine pH Ur Specific [place] Urine Protein Urine Glucose (UA) Urine Ketones Urine Blood Urine Nitrite Ur Leukocyte Esterase Urine Opiates Screen Urine Fentanyl Screen Ur Barbiturates Screen Ur Phencyclidine Scrn Ur Amphetamines Screen U Benzodiazepines Scrn Urine Cocaine Screen U Marijuana (THC) Screen Ethyl Alcohol COVID-19 (DORIAN) Negative COVID-19 Clin Com See Note 01/13/21 01/13/21 01/13/21 01:16 01:16 03:30 WBC RBC Hgb Hct MCV MCH MCHC RDW Plt Count MPV Immature Gran % (Auto) Neut % (Auto) Lymph % (Auto) [place] % (Auto) Eos % (Auto) Baso % (Auto) Lymph # (Auto) [place] # (Auto) Eos # (Auto) Baso # (Auto) Abs Immat Gran (auto) Absolute Neuts (auto) Absolute Nucleated RBC Nucleated RBC % (auto) PT INR APTT D-Dimer Sodium Potassium Chloride Carbon Dioxide Anion Gap BUN Creatinine Estim Creat Clear Calc Estimated GFR Random Glucose Calcium Magnesium Total Bilirubin AST ALT Alkaline Phosphatase Troponin I High Sens < 3.5 Total Protein Albumin Urine Color YELLOW Urine Appearance CLEAR Urine pH 6.0 Ur Specific [place] 1.010 Urine Protein NEG Urine Glucose (UA) NEG Urine Ketones NEG Urine Blood NEG Urine Nitrite NEG Ur Leukocyte Esterase NEG Urine Opiates Screen Not Detected Urine Fentanyl Screen Not Detected Ur Barbiturates Screen Not Detected Ur Phencyclidine Scrn Not Detected Ur Amphetamines Screen Not Detected U Benzodiazepines Scrn Not Detected Urine Cocaine Screen Not Detected U Marijuana (THC) Screen POSITIVE H Ethyl Alcohol COVID-19 (DORIAN) COVID-19 [facility] Com 01/13/21 01/13/21 03:30 03:30 WBC 7.8 RBC 3.74 L Hgb 12.5 L Hct 35.1 L MCV 93.9 MCH 33.4 H MCHC 35.6 RDW 11.9 Plt Count 176 MPV 9.9 Immature Gran % (Auto) 0.4 Neut % (Auto) 70.4 Lymph % (Auto) 21.6 [place] % (Auto) 6.1 Eos % (Auto) 1.0 Baso % (Auto) 0.5 Lymph # (Auto) 1.7 [place] # (Auto) 0.5 Eos # (Auto) 0.1 Baso # (Auto) 0.0 Abs Immat Gran (auto) 0.03 Absolute Neuts (auto) 5.5 Absolute Nucleated RBC 0.000 Nucleated RBC % (auto) 0.0 PT INR APTT D-Dimer Sodium 138 Potassium 4.5 Chloride 107 Carbon Dioxide 22 Anion Gap 14 BUN 13 Creatinine 0.82 Estim Creat Clear Calc 110.5 Estimated GFR > 60 Random Glucose 110 Calcium 8.7 Magnesium Total Bilirubin AST ALT Alkaline Phosphatase Troponin I High Sens Total Protein Albumin Urine Color Urine Appearance Urine pH Ur Specific [place] Urine Protein Urine Glucose (UA) Urine Ketones Urine Blood Urine Nitrite Ur Leukocyte Esterase Urine Opiates Screen Urine Fentanyl Screen Ur Barbiturates Screen Ur Phencyclidine Scrn Ur Amphetamines Screen U Benzodiazepines Scrn Urine Cocaine Screen U Marijuana (THC) Screen Ethyl Alcohol COVID-19 (DORIAN) COVID-19 [facility] Com <HAWA Daniels - Last Filed: 01/13/21 11:43> Discharge Plan Discharge Patient Disposition: Home, Self-Care <HAWA Daniels - Last Filed: 01/13/21 11:43> Discharge Diagnosis: syncope <HAWA Daniels - Last Filed: 01/13/21 11:43> syncope <Danny Araiza MD - Last Filed: 01/14/21 08:05> Referrals: Dirk Cardoza MD [Primary Care Provider] - 1 Week Tyrone Quigley MD [Physician] - 1 Week <HAWA Daniels - Last Filed: 01/13/21 11:43> Discharge Medications: Continued sertraline 100 mg tablet 100 mg PO DAILY Qty: 90 RF: 0 <HAWA Daniels - Last Filed: 01/13/21 11:43> Discharge Orders: Discharge Order (Routine); Ordered 01/13/21 Ordered By: Liset Benitez <HAWA Daniels - Last Filed: 01/13/21 11:43> Activity on Discharge: As tolerated <HAWA Daniels - Last Filed: 01/13/21 11:43> As tolerated <Danny Araiza MD - Last Filed: 01/14/21 08:05> Stand Alone Forms: Patient Portal Discharge page <HAWA Daniels - Last Filed: 01/13/21 11:43> Care Plan Goals: see below <HAWA Daniels - Last Filed: 01/13/21 11:43> Health Concerns: syncope <HAWA Daniels - Last Filed: 01/13/21 11:43> Plan of Treatment: Call to schedule follow-up appointment with Cardiology, will need outpatient echocardiogram Call to schedule follow-up appointment PCP <HAWA Daniels - Last Filed: 01/13/21 11:43> Assessment: See discharge summary <HAWA Daniels - Last Filed: 01/13/21 11:43> Discharge Date/Time: 01/13/21 16:41 <HAWA Daniels - Last Filed: 01/13/21 11:43>
--- NOTE | 2021-01-13 11:48 | MHC.CM.PN ---
CM MET WITH PT AND WHO WAS AT BEDSIDE. PT IS INDEPENDENT WITH ALL CARE USES NO DME AND HAS NO SERVICES PT CONFIRMS HIS PCP IS OCTAVIO SHERWOOD PT COMPLETED A HCP TODAY NAMING HIS , JOANNA, HIS AGENT. OBS NOTICE DELIVERED PT WILL DC HOME TODAY WITH NO SERVICES TO TRANSPORT
== END 2021-01-13 16:41 | disposition home or self-care (01) ==
LOC: HO.ED 01-13 00:50 → HO.EDOVER 01-13 02:12
PROVIDERS: Student in an Organized Health Care Education/Training Program; Admitting Provider Hospitalist; Emergency Provider Internal Medicine; PCP Internal Medicine; Visit Provider Physician Assistant Medical
DX: R55 Syncope and collapse (principal); F41.8 Other specified anxiety disorders; F12.229 Cannabis dependence with intoxication, unspecified; F10.129 Alcohol abuse with intoxication, unspecified; Y90.6 Blood alcohol level of 120-199 mg/100 ml; Z20.822 Contact with and (suspected) exposure to COVID-19; Z82.49 Family history of ischemic heart disease and other diseases of the circulatory system; Z79.899 Other long term (current) drug therapy
CPT/HCPCS: 36415; 70496; 70498; 80048; 80053; 80307; 81003; 82077; 83735; 84484; 85025; 85379; 85610; 85730; 87635; 93005; 96360; 96361; 99205; 99219; 99285; Q9967

== ENCOUNTER → 2021-03-02 08:18 | Outpatient (REF) | payer OTHER, SELFPAY ==
--- NOTE | 2021-03-02 08:21 | CA_ITS ---
Transthoracic Echocardiogram Patient (Last, First, Middle): Adrian Singh J Gender: Male Date of : 1965 Age: 55 Procedure Date: 03/02/2021 Procedure Type: Transthoracic Echocardiogram Location: OP Height: 172.72 cm Weight: 77.11 kg BSA: 1.91 m2 Heart Rate: bpm BP: 120 / 80 mmHg Wheel Shop Supervisor: KELSIE Chavez MD: Tyrone Quigley MD Soil And Plant Scientist: Scott Stewart MD Symptoms: R55 - Syncope and collapse Study Quality: Good ECG Rhythm: Sinus Conclusions: - Essentially normal study Findings Left Ventricle Normal left ventricular size, thickness, and systolic function. The visually estimated ejection fraction is between 60-65%. Spectral Doppler is indicative of a normal filling pattern. Right Ventricle Normal right ventricular cavity size and systolic function. Atria Both atria are normal in size. There is no evidence of interatrial shunt. Aortic Valve The aortic valve structure and function is likely normal. There is no aortic valve stenosis. There is no aortic valve regurgitation. Mitral Valve Normal mitral valve structure and function. There is trace mitral valve regurgitation. There is no mitral valve stenosis. Pulmonic Valve The pulmonic valve was not well visualized. Tricuspid Valve Likely normal tricuspid valve structure and function. There is trace tricuspid valve regurgitation. The right ventricular systolic pressure is normal. The right ventricular systolic pressure is 15 mmHg. Normal right atrial pressure. There is no evidence of pulmonary hypertension. Great Vessels All visible segments of the aorta are normal in size. The pulmonary artery was not well visualized. Venous The inferior vena cava is normal in size and collapses greater than 50% with inspiration. Pericardium/Pleural There is no evidence of pericardial effusion. Prior Study Comparison No previous study in last 5 years for comparison Measurements 2D Linear Measurements IVSd: 1.00 0.6-0.9/0.6-1.0 cm LVIDd: 3.77 3.9-5.3/4.2-5.9 cm LVIDd Index: 1.97 2.4-3.2/2.2-3.1 cm/m2 LVIDs: 2.76 2.0-3.6 cm LVPWd: 0.94 0.7-1.1 cm Ao Root: 3.70 2.1-3.5 cm LA Diam: 2.90 2.7-3.8/3.0-4.0 cm LAIDs Index: 1.52 1.5-2.3 cm/m2 LV Mass: 137.99 67-162/88-224 g LV Mass Index: 72.25 43-95/49-115 g/m2 LVOT Diam: 2.00 3.0+(-)1.3 cm 2D Systolic Function EF 4C: 54.60 >55% EF 2C: 67.10 >55% EF BiP: 63.40 >55% Mitral Valve MV Pk E: 0.54 MV PK A: 0.64 MV Decel Time: 110.00 E/A: 0.80 E'Lateral: 7.72 E'Medial: 6.20 E/E' Med: 8.70 E/E' Lat: 7.00 PHT: 32.00 MVA PHT: 6.88 Decel [place]: 4.91 Aortic Valve AoV Pk Rd: 1.[address]: 0.87 AoV VTI: 0.20 AoV Pk Grad: 7.00 Aov Mn Grad: 3.00 PRATIBHA Cont.VTI: 2.[address]: 0.[address]: 0.67 LVOT VTI: 0.17 LVOT Pk Grad: 3.00 LVOT Mn Grad: 2.00 LVOT Diam: 2.00 LVOT Area: 3.14 Diastolic Function MV Pk E: 0.54 MV Pk A: 0.64 E/A: 0.80 E'Medial: 6.20 E/E' Med: 8.70 E' Laterial: 7.72 E/E' Lat: 7.00 Right Ventricle TAPSE (mm): 1.[address]: 10.70 Tricuspid Valve TR Pk Rd: 1.75 TR Pk Grad: 12.00 RA Press: 3.00 RVSP: 15.00 Great Vessels Aorta Ao Root-2D: 3.70 2.0-3.7 cm Ao Asc: 3.40 2.1-3.4 cm Ao Arch: 2.70 Updated in Other Vendor System with Status of Final Scott Stewart MD electronically signed on 03/02/2021 10:55:47 AM with status of Final
== END ==
LOC: HO.CARD 08:18
PROVIDERS: Visit Provider Internal Medicine
DX: R55 Syncope and collapse (principal)
CPT/HCPCS: 93306

== ENCOUNTER 2021-03-03 16:42 | Outpatient (REF) | payer OTHER, SELFPAY ==
[2021-03-03 17:24] LABS: Influenza A PCR NEGATIVE (Negative); Influenza B PCR NEGATIVE (Negative); Resp Syncy Virus RNA Qual PCR NEGATIVE (Negative); SARS COV2 PCR INHOUSE POSITIVE (Negative)
== END 2021-03-03 16:43 | disposition home or self-care (01) ==
LOC: HO.LNP 16:42
PROVIDERS: Visit Provider Physician Assistant Medical
DX: Z20.822 Contact with and (suspected) exposure to COVID-19 (principal); J06.9 Acute upper respiratory infection, unspecified
CPT/HCPCS: 0241U

== ENCOUNTER → 2021-05-11 07:54 | Outpatient (BNVA) | payer OTHER, SELFPAY | PROVIDERS: PCP Internal Medicine; Referring Provider Internal Medicine; Visit Provider Nurse Practitioner Family ==

== ENCOUNTER 2021-06-23 07:20 | Day surgery (SDC) | payer OTHER, SELFPAY ==
[2021-06-15 12:27] VITALS: BMI 25.8
[2021-06-23 07:26] VITALS: BP 110/77; PULSE 84; RESP 18; TEMP 36.1; O2SAT 99
--- NOTE | 2021-06-23 07:57 | HO.ANESPROP2 ---
[facility], [facility] Active Problems Active Problems: All Active Problems (Updated 03/03/21 @ 14:29 by Barbie Corbett PA-C) Contact with and (suspected) exposure to other viral communicable diseases (Acute) Viral illness (Acute) LFT elevation (Acute) Colon cancer screening (Acute) Encounter for general adult medical examination with abnormal findings (Acute) Syncope and collapse (Acute) Alcohol abuse with intoxication (Acute) Alcoholism (Acute) Fatigue (Acute) Paresthesia of left arm (Acute) Anxiety, generalized (Acute) Past Medical History Functional capacity: independent ambulation Family History Family History Father CAD (coronary artery disease) Other Mental health disorder Substance use disorder Family history of problems with anesthesia: No Surgical History History of Problems with Anesthesia: No Social History Social History Alcohol intake: current Alcohol intake frequency: a few times a week Patient Tobacco Use Status: Never used Tobacco Use of substances other than those prescribed or required for medical reasons: No Substance Use Type: Marijuana Are you DNR?: No Advance Directives: No Advance Directives Information Provided: Yes service: No Current occupational status: employed Meds Allergies Allergy/AdvReac Type Severity Reaction Status Date / Time No Known Allergies Allergy Unknown UNKNOWN Verified 05/11/21 08:03 [NO KNOWN ALLERGIES] Exam Exam Date and Time: June 23, 2021 0757 Height,Weight and Vital Signs: Height 5 ft 8 in Weight 77.111 kg Last Vital Signs Temp 97.0 F 06/23/21 07:26 Pulse 84 06/23/21 07:26 Resp 18 06/23/21 07:26 BP 110/77 06/23/21 07:26 Pulse Ox 99 06/23/21 07:26 Airway Mallampati Class: II TM Dist: >3cm Neck ROM: Full Heart: RRR Lungs: CTA Assessment and Plan Final Anesthetic Review Family History of Problems with Anesthesia: No History of Problems with Anesthesia: No ASA Class: II Final Preanesthetic Review: No Changes in Pt Med Stat, Meds/Allgs Chart Reviewed, Consent Obtained/Reviewed and Anes Risks/Benef Reviewed Patient Risk: Low Procedure Risk: Low Anesthetic Plan Anesthetic Plan: MAC: Disposition: Standard PACU
--- NOTE | 2021-06-23 08:29 | MHC.SHP ---
Pre-Procedural Eval Section A Date of Service: 06/23/21 Section B Chief Complaint: screening Relevant Family History (Specify if Yes): No Relevant Social History: None Present Medications: see Short Stay Collaborative assessment Medical History: Significant History (anxiety) History of Previous Operations: No relevant previous surgery Allergies: Allergies Allergy/AdvReac Type Severity Reaction Status Date / Time No Known Allergies Allergy Unknown UNKNOWN Verified 05/11/21 08:03 [NO KNOWN ALLERGIES] Review of Systems Sugical H&P ROS: Negative: Constitution, Cardiovascular, Respiratory, Neurological, Psychiatric, Hem-Onc, Allergic/Immunologic, Gastrointestinal, Genitourinary, Musculoskeletal, Integumentary, Endocrine and Eyes/Ears/Nose/Throat Exam Surgical H&P Exam: Normal: HEENT, Normal: Heart, Normal: Lungs, Normal: Extremities, Normal: Abdomen, Normal: Skin and Normal: Neurological Plan Diagnosis/Plan: Unchanged I have reviewed the history and physical and performed a pertinent physical examination on my patient. No changes have occurred unless specified.
--- NOTE | 2021-06-23 08:34 | PM.OP ---
Brief Operative Note Date of Service: 06/23/21 Pre-op diagnosis: colon screening Post-op diagnosis: same Procedure: see op note Surgeon: Vitaliy Faye MD Anesthesia: MAC Was an Flame Hardening Machine Operator used for this Procedure?: No Estimated blood loss (mL): 0 Condition: stable Disposition: PACU
--- NOTE | 2021-06-23 08:34 | W.PM.OPN ---
Operative Note Operative Note Date of Service: 06/23/21 Narrative: Operative Information Procedure Description: Colonoscopy Indication: colon screening Anesthesia: MAC COLONOSCOPY Instrument: Olympus variable stiffness pediatric scope 190L Colonoscopy Monitoring: Vital signs and clinical assessment, continuous EKG monitoring, Pulse oximetry, Carbon Dioxide monitoring and blood pressure monitoring were done throughout the procedure. Colon withdrawal time was [] minutes. Procedure: The patient was placed in the left lateral decubitis position and pre-procedure medications were administered. After a digital rectal examination of the ano-rectum, the video colonoscope was inserted into the rectum and advanced through the colon to the cecum/TI. The colonoscope was slowly withdrawn in a retrograde panoramic fashion and the colon mucosa was carefully examined including a retroflexed view of the rectum. Findings and interventions are described below. Procedure Difficulty: easy Findings: Terminal Ileum-normal right sided retroflexion was normal Cecum:normal Ascending Colon: normal Transverse Colon -normal Descending Colon:normal Sigmoid Colon: normal Rectum: Retroflexion with small to medium sized internal hemorrhoids, grade I Anorectum - normal Colon preparation: [place] Bowel Preparation Scale Right colon; 1-2 (adherent sticky stool to mucosa, hard to wash off in some areas) Transverse colon: 1-2 (as above) Left colon; 2 (0 = Unprepared colon segment with mucosa not seen due to solid stool that cannot be cleared. 1 = Portion of mucosa of the colon segment seen, but other areas of the colon segment not well seen due to staining, residual stool and/or opaque liquid. 2 = Minor amount of residual staining, small fragments of stool and/or opaque liquid, but mucosa of colon segment seen well. 3 = Entire mucosa of colon segment seen well with no residual staining, small fragments of stool or opaque liquid) Impression and Post Procedure Diagnosis: internal hemorrhoids Plan: High fiber diet leaflet Avoid straining at stool, epsom salts and sitz bath, anusol supps or cream Repeat Colonoscopy in 2-3 years or earlier if clinically indicated, check timing of prep and may need 2 d of clears or additional laxative for 1 week prior to bowel prep Above findings were reviewed with the patient and relevant handouts were provided if indicated.
[2021-06-23 08:53] VITALS: BP 121/75; PULSE 83; RESP 16; TEMP 36.2; O2SAT 97
[2021-06-23 09:08] VITALS: BP 127/88; PULSE 77; RESP 16; TEMP 36.2; O2SAT 98
--- NOTE | 2021-06-23 13:13 | HO.POSTANES ---
Post Anesthesia Evaluation Post Anesthesia Evaluation Vital Signs: Vital Signs Temp Pulse Resp BP Pulse Ox 06/23/21 09:08 97.2 F 77 16 127/88 98 06/23/21 08:53 97.2 F 83 16 121/75 97 06/23/21 07:26 97.0 F 84 18 110/77 99 Anesthesia: Monitored Mental Status: Awake Pain Control: Satisfactory Nausea/Vomiting: None Hydration: Adequate Anesthesia-Related Issues: No Anes. Related Issues
== END 2021-06-23 09:44 | disposition home or self-care (01) ==
PROVIDERS: PCP Internal Medicine; Visit Provider Internal Medicine Gastroenterology
PROC: 0DJD8ZZ Inspection of Lower Intestinal Tract, Via Natural or Artificial Opening Endoscopic (ICD-10-PCS; CPT 45378; principal; 2021-06-23 08:30)
DX: Z12.11 Encounter for screening for malignant neoplasm of colon (principal); K64.0 First degree hemorrhoids; Z83.79 Family history of other diseases of the digestive system; F12.90 Cannabis use, unspecified, uncomplicated
CPT/HCPCS: 45378

== ENCOUNTER → 2021-07-06 08:24 | Outpatient (BNVA) | payer OTHER, SELFPAY | PROVIDERS: PCP Internal Medicine; Referring Provider Internal Medicine; Visit Provider Nurse Practitioner Family | DX: K64.8 Other hemorrhoids (principal) ==

== ENCOUNTER 2021-09-20 10:23 | Outpatient (REF) | payer OTHER, SELFPAY ==
[2021-09-20 11:20] LABS: MANUAL DIFF FLAG NO
[2021-09-20 11:32] LABS: Basophils Absolute Auto 0.1 X10*3/uL (0.0-0.2); Basophils Percent Auto 0.8 % (0-2); Eosinophils Absolute Auto 0.2 X10*3/uL (0.0-0.4); Eosinophils Percent Auto 2.9 % (0-4); Hematocrit 41.6 % (42.0-52.0); Hemoglobin 14.9 g/dl (14.0-18.0); Imm Gran Abs Auto 0.02 X10*3/uL (0.00-0.03); Imm Gran Pct Auto 0.3 % (0.0-0.4); Lymphocytes Absolute Auto 1.6 X10*3/uL (1.2-4.9); Lymphocytes Percent Auto 26.3 % (20-40); Mean Corpuscular HGB Conc 35.8 g/dl (31.0-36.0); Mean Corpuscular Hemoglobin 33.2 pg (27.0-33.0); Mean Corpuscular Volume 92.7 fL (80.0-98.0); Mean Platelet Volume 10.3 fL (9.4-12.4); Monocytes Absolute Auto 0.6 X10*3/uL (0.1-1.2); Monocytes Percent Auto 9.1 % (2-11); Neutrophils Absolute Auto 3.8 x10*3/uL (2.0-8.3); Neutrophils Percent Auto 60.6 % (45-73); Platelet Count 208 X10*3/uL (160-400); Red Blood Count 4.49 X10*6/uL (4.60-5.80); Red Cell Distribution Width 12.1 % (11.0-16.0); White Blood Count 6.2 X10*3/uL (4.8-10.8)
[2021-09-20 11:56] LABS: Alanine Aminotransferase 80 U/L (0-40); Albumin Level 4.6 g/dL (3.5-5.0); Alkaline Phosphatase 81 U/L (39-117); Anion Gap 12 (12-20); Aspartate Amino Transferase 48 U/L (5-37); Bilirubin Total 0.9 mg/dL (0.0-1.0); Blood Urea Nitrogen 19 mg/dL (9-16); Calcium 9.2 mg/dL (8.4-10.2); Carbon Dioxide 27 mmol/L (22-29); Chloride 104 mmol/L (96-108); Estimated Glomerular Filt Rate > 60; Glucose Random 110 mg/dL (60-115); Potassium 4.6 mmol/L (3.3-5.1); Sodium 138 mmol/L (135-145); Total Protein 7.5 g/dL (6.5-8.0)
[2021-09-22 09:17] LABS: LDL Cholesterol Direct 148 mg/dL (<100)
== END 2021-09-20 10:24 | disposition home or self-care (01) ==
LOC: HO.HMGCLDS 10:23
PROVIDERS: PCP Internal Medicine; Visit Provider Internal Medicine
DX: Z00.01 Encounter for general adult medical examination with abnormal findings (principal); R20.2 Paresthesia of skin; R79.89 Other specified abnormal findings of blood chemistry; F41.1 Generalized anxiety disorder
CPT/HCPCS: 36415; 80053; 83721; 85025

== ENCOUNTER 2022-03-23 09:16 | Outpatient (REF) | payer OTHER, SELFPAY ==
[2022-03-23 11:19] LABS: MANUAL DIFF FLAG NO
[2022-03-23 11:25] LABS: Basophils Percent Auto 0.3 % (0-2); Eosinophils Absolute Auto 0.1 X10*3/uL (0.0-0.4); Eosinophils Percent Auto 1.9 % (0-4); Hematocrit 38.8 % (42.0-52.0); Hemoglobin 13.2 g/dl (14.0-18.0); Imm Gran Abs Auto 0.03 X10*3/uL (0.00-0.03); Imm Gran Pct Auto 0.4 % (0.0-0.4); Lymphocytes Absolute Auto 1.6 X10*3/uL (1.2-4.9); Lymphocytes Percent Auto 22.5 % (20-40); Mean Corpuscular Hemoglobin 32.3 pg (27.0-33.0); Mean Corpuscular Volume 94.9 fL (80.0-98.0); Mean Platelet Volume 10.5 fL (9.4-12.4); Monocytes Absolute Auto 0.8 X10*3/uL (0.1-1.2); Monocytes Percent Auto 10.8 % (2-11); Neutrophils Absolute Auto 4.6 x10*3/uL (2.0-8.3); Neutrophils Percent Auto 64.1 % (45-73); Platelet Count 236 X10*3/uL (160-400); Red Blood Count 4.09 X10*6/uL (4.60-5.80); Red Cell Distribution Width 12.3 % (11.0-16.0); White Blood Count 7.2 X10*3/uL (4.8-10.8)
[2022-03-23 11:42] LABS: Alanine Aminotransferase 41 U/L (0-40); Albumin Level 4.1 g/dL (3.5-5.0); Alkaline Phosphatase 120 U/L (39-117); Anion Gap 11 (12-20); Aspartate Amino Transferase 27 U/L (5-37); Blood Urea Nitrogen 18 mg/dL (9-16); Calcium 9.2 mg/dL (8.4-10.2); Carbon Dioxide 28 mmol/L (22-29); Chloride 105 mmol/L (96-108); Cholesterol 176 mg/dL; Estimated Glomerular Filt Rate > 60; Glucose Random 108 mg/dL (60-115); HDL Cholesterol 35 mg/dL; LDL Cholesterol Calculated 66 mg/dl; Potassium 4.4 mmol/L (3.3-5.1); Sodium 140 mmol/L (135-145); Total Protein 6.8 g/dL (6.5-8.0); Triglycerides 375 mg/dL
== END 2022-03-23 09:17 | disposition home or self-care (01) ==
LOC: HO.HMGCLDS 09:16
PROVIDERS: PCP Internal Medicine; Visit Provider Internal Medicine
DX: F10.20 Alcohol dependence, uncomplicated (principal); F41.1 Generalized anxiety disorder; R79.89 Other specified abnormal findings of blood chemistry; R20.2 Paresthesia of skin
CPT/HCPCS: 36415; 80053; 80061; 85025

== ENCOUNTER 2023-06-26 14:28 | Outpatient (AMB) | payer OTHER, SELFPAY ==
[2023-06-26 14:31] VITALS: BP 130/84; PULSE 78; O2SAT 96; BMI 26.8
--- NOTE | 2023-06-26 14:31 | MHC.PC.OV ---
Vital Signs 06/26/23 14:31 Height 5 ft 8 in Weight 176 lb 8 oz BMI 26.8 BP 130/84 Blood Pressure Location Rt brachial Position Sitting Pulse 78 Pulse Source Pulse Oximeter Pulse Oximetry (%) 96 Oxygen Delivery Method Room Air Intake Visit Reasons: refill sertraline Allergies No Known Allergies [NO KNOWN ALLERGIES] Allergy (Unknown, Verified 06/26/23 14:34) UNKNOWN Medication List - Last Reconciled 06/26/23 by Dirk Cardoza MD gabapentin 100 mg PO BEDTIME 90 days sertraline 100 mg PO DAILY 90 days Tobacco use date assessed: 06/26/23 Dental Screening Dental Screen Date: 06/26/23 Did you have a dental visit in the last 12 months?: Yes Did you have a dental problem in the last 6 months where you did not have access to dental care?: No Was dental information given to patient?: Patient has dentist HPI refill sertraline HPI Details Patient is a 58-year-old gentleman who was last seen May of last year and then did not come in for follow-up Reviewing his labs from last year I see that he is anemic as well as has elevated liver enzymes Lab order placed to be done fasting Patient has appointment July 03 for physical examination we will go work the report then Patient have a history of excess alcohol intake He is taking sertraline 100 mg for anxiety, refills sent He offers no complaints today PFSH Surgical History Hx of colonoscopy Family History Father CAD (coronary artery disease) Other Mental health disorder Substance use disorder Social History Housing: House Alcohol intake: current Alcohol intake frequency: a few times a week Patient Tobacco Use Status: Current someday Tobacco user e-Cigarette/Vaping Use: Never Used Substance Use Type: Marijuana service: No Current occupational status: employed Cognitive needs: No Hearing needs: No Vision needs: Yes Questionnaire PHQ-9 Over the last 2 weeks, how often have you been bothered by any of the following problems? 1. Little interest or pleasure in doing things: not at all 2. Feeling down, depressed, or hopeless: not at all 3. Trouble falling or staying asleep, or sleeping too much: not at all 4. Feeling tired or having little energy: several days 5. Poor appetite or overeating: not at all 6. Feeling bad about yourself - or that you are a failure or have let yourself or your family down: not at all 7. Trouble concentrating on things, such as reading the newspaper or watching television: not at all 8. Moving or speaking so slowly that other people could have noticed. Or the opposite - being so fidgety or restless that you have been moving around a lot more than usual: not at all 9. Thoughts that you would be better off or of hurting yourself in some way: not at all Total score: 1 Depression Screening Interpretation: Negative Depression Screening Done: Yes 69459 - PHQ-9 Billing: Yes Source: Developed by Drs. Kyle Acevedo, Esperanza Childers, Yordan Carr and colleagues, with an educational sheila from [employer]. Thrive Questionnaire Date Thrive assessed: 06/26/23 I am a: Patient What is your living situation today?: I have a steady place to live Within the past 12 months, did the food you bought not last and you didn't have the money to get more?: Never true Within the past 12 months, did you worry whether your food would run out before you got money to buy more?: Never true Do you have trouble paying for medicines?: No Do you have trouble getting transportation to medical appointments?: No Do you have trouble paying your heating and electricity bill?: No Do you have trouble taking care of your child, family member or friend?: No Do you have trouble with day-to-day activities such as bathing, preparing meals, shopping, managing finances, etc.?: No Are you currently unemployed and looking for a job?: No Are you interested in more education?: No Please select the resources that you would like help with: None Currently or been in a relationship where the following occur: no concerns reported THRIVE Score: 0 AUDIT C Alcohol Use Questionnaire (AUDIT-C) 1. How often do you have a drink containing alcohol?: Monthly or less 2. How many drinks containing alcohol do you have on a typical day when you are drinking?: 1 or 2 3. How often do you have six or more drinks on one occasion?: Never Total Score: 1 Score Reviewed/Action Taken: Yes HAYLEE-7 AMB Questionnaire HAYLEE-7 Date HAYLEE - 7 assessed: 06/26/23 Feeling nervous, anxious, or on edge: 0 = Not at all Not being able to stop or control worryin = Not at all Worrying too much about different things: 0 = Not at all Trouble relaxin = Several days Being so restless that it is hard to sit still: 0 = Not at all Becoming easily annoyed or irritable: 1 = Several days Feeling afraid as if something awful might happen: 0 = Not at all Total HAYLEE-7 score (0-4 normal; 5-9 mild; 10-14 moderate; 15-21 severe): 2 Source: Developed by Drs. Kyle Acevedo, Esperanza Childers, Yordan Carr and colleagues, with an educational sheila from [employer]. HAYLEE-7 Assessment Billing HAYLEE-7 Assessment Tool: HAYLEE-7 Assessment [id number] Review of Systems Const Denies chills and Denies fever(s) ENT Denies epistaxis and Denies nasal discharge Card Denies chest pain Resp Denies chest congestion, Denies cough and Denies hemoptysis GI Denies diarrhea and Denies nausea Skin/Breast Denies rash Neuro Reports no additional complaints Psych Reports no additional complaints Endo Reports no additional complaints Physical exam (Primary Care) Vital Signs: Last Vital Signs Pulse 78 06/26/23 14:31 BP 130/84 06/26/23 14:31 Pulse Ox 96 06/26/23 14:31 Oxygen Delivery Method Room Air 06/26/23 14:31 BMI result Body Mass Index 26.8 Tobacco/Smoking Status: Tobacco use Status Tobacco use date assessed 06/26/23 06/26/23 14:34 Patient Tobacco Use Status Current someday Tobacco 06/26/23 14:34 e-Cigarette/Vaping Use Never Used 06/26/23 14:34 PHQ-9: PHQ-9 Score PHQ-9: Total score 1 06/26/23 14:50 Depression Screening Interpretation: Negative Thrive Assessment: Date of Thrive Assessment Date Thrive assessed 06/26/23 06/26/23 14:49 Currently or been in a relationship where the following occur: no concerns reported Const General: cooperative, comfortable and no acute distress Orientation/consciousness: patient oriented x3 HENGA Head: Yes normocephalic Eyes General: appearance normal, both eyes and all related structures Neck Neck: Yes supple Resp Effort & Inspection: normal respiratory effort, no cough and no stridor Cardio Rhythm: regular rhythm Heart sounds: S1 normal heart sound present and S2 normal heart sound present Skin General skin exam: turgor normal Neuro General: patient oriented x3, tone normal and moves all extremities Extrem Right lower extremity: no edema Left lower extremity: no edema Assessment and Plan Assessment & Plan (1) Anxiety, generalized: Code(s): F41.1 - Generalized anxiety disorder (2) LFT elevation: Code(s): R79.89 - Other specified abnormal findings of blood chemistry (3) Anemia: Code(s): D64.9 - Anemia, unspecified Qualifiers: Anemia type: other cause Other causes of anemia: chronic disease, other Qualified Code(s): D63.8 - Anemia in other chronic diseases classified elsewhere Plan Patient is a 58-year-old gentleman who was last seen May of last year and then did not come in for follow-up Reviewing his labs from last year I see that he is anemic as well as has elevated liver enzymes Lab order placed to be done fasting Patient has appointment July 03 for physical examination we will go work the report then Patient have a history of excess alcohol intake He is taking sertraline 100 mg for anxiety, refills sent He offers no complaints today Orders: Orders Lipid Panel Today D64.9 - Anemia, unspecified, F41.1 - Generalized anxiety disorder, R79.89 - Other specified abnormal findings of blood chemistry Ethanol Today R79.89 - Other specified abnormal findings of blood chemistry Complete Blood Count Auto Diff Today D64.9 - Anemia, unspecified, F41.1 - Generalized anxiety disorder, R79.89 - Other specified abnormal findings of blood chemistry Comprehensive [place]. Panel Fast Today D64.9 - Anemia, unspecified, F41.1 - Generalized anxiety disorder, R79.89 - Other specified abnormal findings of blood chemistry Medications: Refilled sertraline 100 mg PO DAILY 90 days 90 tabs 0RF sertraline 100 mg PO DAILY 90 tabs 0RF 90 days Coding Level of Care Code Est Pt Level 4 (26754) Diagnoses Anxiety, generalized F41.1 LFT elevation R79.89 Anemia in other chronic diseases classified elsewhere D63.8 Anemia type: other cause Other causes of anemia: chronic disease, other Additional Codes HAYLEE-7 Assessment Billing - HAYLEE-7 Assessment Tool: HAYLEE-7 Assessment [id number] ([id number])
== END 2023-06-26 14:48 | disposition home or self-care (01) ==
PROVIDERS: PCP Internal Medicine; Visit Provider Internal Medicine
DX: F41.1 Generalized anxiety disorder (principal); D63.8 Anemia in other chronic diseases classified elsewhere; R79.89 Other specified abnormal findings of blood chemistry
CPT/HCPCS: 99214

== ENCOUNTER 2023-07-02 06:10 | Outpatient (REF) | payer OTHER, SELFPAY ==
[2023-07-02 10:25] LABS: MANUAL DIFF FLAG NO
[2023-07-02 10:36] LABS: Basophils Percent Auto 0.6 % (0-2); Eosinophils Absolute Auto 0.1 X10*3/uL (0.0-0.4); Eosinophils Percent Auto 1.9 % (0-4); Hematocrit 39.3 % (42.0-52.0); Hemoglobin 13.5 g/dl (14.0-18.0); Imm Gran Abs Auto 0.02 X10*3/uL (0.00-0.03); Imm Gran Pct Auto 0.3 % (0.0-0.4); Lymphocytes Percent Auto 31.5 % (20-40); Mean Corpuscular HGB Conc 34.4 g/dl (31.0-36.0); Mean Corpuscular Hemoglobin 32.9 pg (27.0-33.0); Mean Corpuscular Volume 95.9 fL (80.0-98.0); Mean Platelet Volume 10.5 fL (9.4-12.4); Monocytes Absolute Auto 0.6 X10*3/uL (0.1-1.2); Monocytes Percent Auto 9.1 % (2-11); Neutrophils Absolute Auto 3.5 x10*3/uL (2.0-8.3); Neutrophils Percent Auto 56.6 % (45-73); Platelet Count 201 X10*3/uL (160-400); Red Cell Distribution Width 12.4 % (11.0-16.0); White Blood Count 6.3 X10*3/uL (4.8-10.8)
[2023-07-02 11:44] LABS: Alanine Aminotransferase 28 U/L (0-40); Albumin Level 4.2 g/dL (3.5-5.0); Alkaline Phosphatase 65 U/L (39-117); Anion Gap 10 (12-20); Aspartate Amino Transferase 26 U/L (5-37); Blood Urea Nitrogen 18 mg/dL (9-16); Calcium 9.1 mg/dL (8.4-10.2); Carbon Dioxide 27 mmol/L (22-29); Chloride 106 mmol/L (96-108); Cholesterol 183 mg/dL (<200); Estimated Glomerular Filt Rate > 60; Ethanol < 10 mg/dL; Glucose Fasting 108 mg/dL (60-99); HDL Cholesterol 41 mg/dL (>40); LDL Cholesterol Calculated 76 mg/dL (<100); Sodium 139 mmol/L (135-145); Total Protein 7.1 g/dL (6.5-8.0); Triglycerides 333 mg/dL (<150)
== END 2023-07-02 06:11 | disposition home or self-care (01) ==
LOC: HO.HMGCLDS 06:10
PROVIDERS: PCP Internal Medicine; Visit Provider Internal Medicine
DX: F41.1 Generalized anxiety disorder (principal); R79.89 Other specified abnormal findings of blood chemistry; D64.9 Anemia, unspecified
CPT/HCPCS: 36415; 80053; 80061; 80307; 85025

== ENCOUNTER 2023-07-04 08:54 | Outpatient (AMB) | payer OTHER, SELFPAY ==
[2023-07-04 08:56] VITALS: BP 128/80; PULSE 76; O2SAT 98; BMI 26.8
--- NOTE | 2023-07-04 08:56 | MHC.PC.OV ---
Vital Signs 07/04/23 08:56 Height 5 ft 8 in Weight 176 lb BMI 26.8 BP 128/80 Blood Pressure Location Rt brachial Position Sitting Pulse 76 Pulse Source Pulse Oximeter Pulse Oximetry (%) 98 Oxygen Delivery Method Room Air Intake Visit Reasons: Annual PE Allergies No Known Allergies [NO KNOWN ALLERGIES] Allergy (Unknown, Verified 07/04/23 08:56) UNKNOWN Medication List - Last Reconciled 07/04/23 by Dirk Cardoza MD gabapentin 100 mg PO BEDTIME 90 days sertraline 100 mg PO DAILY 90 days Tobacco use date assessed: 06/26/23 Dental Screening Dental Screen Date: 06/26/23 HPI Annual PE HPI Details 58-year-old gentleman came in today for physical examination Colonoscopy is due, last colonoscopy had suboptimal preparation And it was done in 2021 [facility] Anxiety stable with sertraline Labs done recently reviewed, patient is slightly anemic with hemoglobin of 13.5, most likely due to history of hemorrhoids Fasting sugar is 108, strict diet-controlled is recommended Patient would like to be tested for 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, 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 to be done in six-month before visit Follow-up 6 months for anxiety in 1 year for physical exam PFSH Surgical History Hx of colonoscopy Family History Father CAD (coronary artery disease) Other Mental health disorder Substance use disorder Social History Housing: House Alcohol intake: current Alcohol intake frequency: a few times a week Patient Tobacco Use Status: Current someday Tobacco user e-Cigarette/Vaping Use: Never Used Substance Use Type: Marijuana service: No Current occupational status: employed Cognitive needs: No Hearing needs: No Vision needs: Yes Questionnaire Thrive Questionnaire Date Thrive assessed: 06/26/23 HAYLEE-7 AMB Questionnaire HAYLEE-7 Date HAYLEE - 7 assessed: 06/26/23 Source: Developed by Drs. Kyle Acevedo, Esperanza Childers, Yordan Carr and colleagues, with an educational sheila from [employer]. Review of Systems Const Denies chills, Denies fever(s) and Denies headache(s) Eyes Denies blurry vision ENT Denies headache(s), Denies nasal discharge, Denies nasal obstruction, Denies odynophagia and Denies sinus pain Card Denies chest pain at rest and Denies chest pain with activity Resp Denies cough and Denies hemoptysis GI Denies diarrhea, Denies odynophagia, Denies vomiting and Denies hematemesis Reports as per HPI Musc Denies abnormal gait Skin/Breast Reports as per HPI Neuro Denies Neuro-related abnormal movements, Denies Abnormal speech present, Denies abnormal gait, Denies headache(s) and Denies Sensory deficit (Neuro) Psych Denies mood swings and Denies paranoia Endo Reports as per HPI Geremias/Lymph Reports as per HPI Aller/Immun Reports as per HPI Physical exam (Primary Care) Vital Signs: Last Vital Signs BP 128/80 07/04/23 08:56 BMI result Body Mass Index 26.8 Tobacco/Smoking Status: Tobacco use Status Tobacco use date assessed 06/26/23 07/04/23 08:56 Patient Tobacco Use Status Current someday Tobacco 07/04/23 08:56 e-Cigarette/Vaping Use Never Used 07/04/23 08:56 Thrive Assessment: Date of Thrive Assessment Date Thrive assessed 06/26/23 07/04/23 08:56 Const General: cooperative, comfortable and no acute distress Orientation/consciousness: patient oriented x3 HENMT Head: Yes normocephalic and Yes atraumatic Eyes General: appearance normal, both eyes and all related structures Pupils: Equal, round and reactive pupils present EOM: EOMs intact bilaterally Neck Neck: Yes supple and No lymphadenopathy Thyroid: Thyroid normal Lymphatic: no lymphadenopathy noted Resp Effort & Inspection: normal respiratory effort and able to speak in complete sentences Auscultation: clear to auscultation bilaterally Cardio Heart sounds: S1 normal heart sound present and S2 normal heart sound present GI Palpation (GI): Soft to palpation and nontender Auscultation: normal bowel sounds General: Yes no CVA tenderness Back/Spine/Pelvis Back: no CVA tenderness Skin General skin exam: elasticity normal and turgor normal Neuro General: patient oriented x3 and gait normal Cranial nerves: Yes Equal, round and reactive pupils present Speech: No Abnormal speech present Sensory Exam: No Sensory deficit (Neuro) Coordination: tandem gait normal and Romberg test negative Extrem General: Yes normal exam except as noted and No edema Assessment and Plan Assessment & Plan (1) Encounter for general adult medical examination with abnormal findings: Code(s): Z00.01 - Encounter for general adult medical examination with abnormal findings (2) Anxiety, generalized: Code(s): F41.1 - Generalized anxiety disorder (3) Anemia: Code(s): D64.9 - Anemia, unspecified Qualifiers: Anemia type: other cause Other causes of anemia: chronic disease, other Qualified Code(s): D63.8 - Anemia in other chronic diseases classified elsewhere (4) Hemorrhoids: Code(s): K64.9 - Unspecified hemorrhoids Qualifiers: Hemorrhoid type: first degree Qualified Code(s): K64.0 - First degree hemorrhoids (5) Impaired fasting blood sugar: Code(s): R73.01 - Impaired fasting glucose Plan 58-year-old gentleman came in today for physical examination Colonoscopy is due, last colonoscopy had suboptimal preparation And it was done in 2021 [facility] Anxiety stable with sertraline Labs done recently reviewed, patient is slightly anemic with hemoglobin of 13.5, most likely due to history of hemorrhoids Fasting sugar is 108, strict diet-controlled is recommended 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 Panel 6 Months D63.8 - Anemia in other chronic diseases classified elsewhere, F41.1 - Generalized anxiety disorder, K64.0 - First degree hemorrhoids, R73.01 - Impaired fasting glucose Hepatitis B Surface Antibody 6 Months D63.8 - Anemia in other chronic diseases classified elsewhere, F41.1 - Generalized anxiety disorder, K64.0 - First degree hemorrhoids, R73.01 - Impaired fasting glucose Hemoglobin A1c 6 Months D63.8 - Anemia in other chronic diseases classified elsewhere, F41.1 - Generalized anxiety disorder, K64.0 - First degree hemorrhoids, R73.01 - Impaired fasting glucose Coding Level of Care Code Est Pt Prev Care 40-64y(61973) Diagnoses Encounter for general adult medical examination with abnormal findings Z00.01 Anxiety, generalized F41.1 Anemia in other chronic diseases classified elsewhere D63.8 Anemia type: other cause Other causes of anemia: chronic disease, other Grade I hemorrhoids K64.0 Hemorrhoid type: first degree Impaired fasting blood sugar R73.01
== END 2023-07-04 10:08 | disposition home or self-care (01) ==
PROVIDERS: PCP Internal Medicine; Visit Provider Internal Medicine
DX: Z00.00 Encounter for general adult medical examination without abnormal findings (principal); F41.1 Generalized anxiety disorder; D63.8 Anemia in other chronic diseases classified elsewhere; K64.0 First degree hemorrhoids; R73.01 Impaired fasting glucose
CPT/HCPCS: 99396

== ENCOUNTER 2023-07-27 14:20 | Outpatient (AMB) | payer OTHER, SELFPAY ==
--- NOTE | 2023-07-27 14:22 | A.OFFPC_ITS ---
Vital Signs 07/27/23 14:23 Height 5 ft 8 in Weight 172 lb BMI 26.1 BP 116/80 Blood Pressure Location Rt brachial Position Sitting Pulse 62 Pulse Source Pulse Oximeter Pulse Oximetry (%) 98 Oxygen Delivery Method Room Air Intake Visit Reasons: Poison cesar Allergies No Known Allergies [NO KNOWN ALLERGIES] Allergy (Unknown, Verified 07/27/23 14:24) UNKNOWN Medication List - Last Reconciled 07/27/23 by Dirk Cardoza MD gabapentin 100 mg PO BEDTIME 90 days sertraline 100 mg PO DAILY 90 days Tobacco use date assessed: 06/26/23 Dental Screening Dental Screen Date: 06/26/23 HPI Poison cesar HPI Details Patient is a 58-year-old gentleman came in today to be evaluated for rash that he has developed 5 days ago Patient says that he was working outside the day before he developed the rash It started from his lower legs and then started spreading towards his thigh body and now he also have it on his arms It is extremely pruritic Patient says that he had poison cesar before and he waited too long and it was spread all over his body He has no breathing difficulty there is no swelling of lips or tongue or difficulty swallowing I am treating him with prednisone taper over 12 days starting with a 50 mg dose He may use calamine lotion to keep his skin cold and okay to take Benadryl for itching at night PFSH Surgical History Hx of colonoscopy Family History Father CAD (coronary artery disease) Other Mental health disorder Substance use disorder Social History Housing: House Alcohol intake: current Alcohol intake frequency: a few times a week Patient Tobacco Use Status: Current someday Tobacco user e-Cigarette/Vaping Use: Never Used Substance Use Type: Marijuana service: No Current occupational status: employed Cognitive needs: No Hearing needs: No Vision needs: Yes Questionnaire Thrive Questionnaire Date Thrive assessed: 06/26/23 HAYLEE-7 AMB Questionnaire HAYLEE-7 Date HAYLEE - 7 assessed: 06/26/23 Source: Developed by Drs. Kyle Acevedo, Esperanza Childers, Yordan Carr and colleagues, with an educational sheila from [employer]. Review of Systems Const All systems reviewed & are unremarkable except as noted in HPI and below Physical exam (Primary Care) Vital Signs: Last Vital Signs Pulse 62 07/27/23 14:23 BP 116/80 07/27/23 14:23 Pulse Ox 98 07/27/23 14:23 Oxygen Delivery Method Room Air 07/27/23 14:23 BMI result Body Mass Index 26.1 Tobacco/Smoking Status: Tobacco use Status Tobacco use date assessed 06/26/23 07/27/23 14:26 Patient Tobacco Use Status Current someday Tobacco 07/27/23 14:26 e-Cigarette/Vaping Use Never Used 07/27/23 14:26 Thrive Assessment: Date of Thrive Assessment Date Thrive assessed 06/26/23 07/27/23 14:26 Const General: no acute distress Orientation/consciousness: patient oriented x3 Eyes General: appearance normal, both eyes and all related structures Resp Effort & Inspection: normal respiratory effort and able to speak in complete sentences Skin Other: Rash lower legs linear, hive-like rash on thighs Maculopapular rash both arms and torso Neuro General: patient oriented x3 Psych Mental Status: mental status grossly normal Assessment and Plan Assessment & Plan (1) Pruritic rash: Code(s): L28.2 - Other prurigo Plan Patient is a 58-year-old gentleman came in today to be evaluated for rash that he has developed 5 days ago Patient says that he was working outside the day before he developed the rash It started from his lower legs and then started spreading towards his thigh body and now he also have it on his arms It is extremely pruritic Patient says that he had poison cesar before and he waited too long and it was sp read all over his body He has no breathing difficulty there is no swelling of lips or tongue or difficulty swallowing I am treating him with prednisone taper over 12 days starting with a 50 mg dose He may use calamine lotion to keep his skin cold and okay to take Benadryl for itching at night Medications: New prednisone PO once; 3 tabs for 2 days, then 2 tabs for 3 days, then 1 tab for 3 days, then half tab for 4 days 17 tabs 0RF 12 days Coding Level of Care Code Est Pt Level 3 (29450) Diagnoses Pruritic rash L28.2
[2023-07-27 14:23] VITALS: BP 116/80; PULSE 62; O2SAT 98; BMI 26.1
== END 2023-07-27 16:13 | disposition home or self-care (01) ==
PROVIDERS: PCP Internal Medicine; Visit Provider Internal Medicine
DX: L28.2 Other prurigo (principal)
CPT/HCPCS: 99213

== ENCOUNTER 2023-12-05 08:28 | Outpatient (AMB) | payer OTHER, SELFPAY ==
[2023-12-05 08:34] VITALS: BP 128/78; PULSE 88; O2SAT 98; BMI 26.1
--- NOTE | 2023-12-05 08:34 | MHC.PC.OV ---
Vital Signs 12/05/23 08:34 Height 5 ft 8 in Weight 171 lb 6 oz BMI 26.1 BP 128/78 Blood Pressure Location Rt brachial Position Sitting Pulse 88 Pulse Source Pulse Oximeter Pulse Oximetry (%) 98 Oxygen Delivery Method Room Air Intake Visit Reasons: 6M F/U Allergies No Known Allergies [NO KNOWN ALLERGIES] Allergy (Unknown, Verified 12/05/23 08:37) UNKNOWN Medication List - Last Reviewed 12/05/23 by Krishna Vigil MA gabapentin 100 mg PO BEDTIME 90 days sertraline 100 mg PO DAILY 90 days Tobacco use date assessed: 12/05/23 Dental Screening Dental Screen Date: 12/05/23 Did you have a dental visit in the last 12 months?: Yes Did you have a dental problem in the last 6 months where you did not have access to dental care?: No Was dental information given to patient?: Patient has dentist HPI 6M F/U HPI Details 58-year-old gentleman came in today for six-month follow-up appointment Patient was supposed to do labs before this visit but I do not see them done Patient is slightly anemic most likely secondary to hemorrhoids Anxiety stable with sertraline He also have impaired fasting sugar that need to be monitored Paresthesia managed with gabapentin Continued to drink alcohol in moderation Offers no new complaints today He is due for colonoscopy but has not scheduled it yet He tells me that he will do that before his physical in 6 months [facility] Surgical History Hx of colonoscopy Family History Father CAD (coronary artery disease) Other Mental health disorder Substance use disorder Social History Housing: House Alcohol intake: current Alcohol intake frequency: a few times a week Patient Tobacco Use Status: Current someday Tobacco user e-Cigarette/Vaping Use: Never Used Substance Use Type: Marijuana service: No Current occupational status: employed Cognitive needs: No Hearing needs: No Vision needs: Yes Questionnaire PHQ-9 Over the last 2 weeks, how often have you been bothered by any of the following problems? 1. Little interest or pleasure in doing things: not at all 2. Feeling down, depressed, or hopeless: not at all 3. Trouble falling or staying asleep, or sleeping too much: not at all 4. Feeling tired or having little energy: not at all 5. Poor appetite or overeating: not at all 6. Feeling bad about yourself - or that you are a failure or have let yourself or your family down: not at all 7. Trouble concentrating on things, such as reading the newspaper or watching television: not at all 8. Moving or speaking so slowly that other people could have noticed. Or the opposite - being so fidgety or restless that you have been moving around a lot more than usual: not at all 9. Thoughts that you would be better off or of hurting yourself in some way: not at all Total score: 0 Depression Screening Interpretation: Negative Depression Screening Done: Yes 18944 - PHQ-9 Billing: Yes Source: Developed by Drs. Kyle Acevedo, Esperanza Childers, Yordan Carr and colleagues, with an educational sheila from [employer]. Thrive Questionnaire Date Thrive assessed: 12/05/23 I am a: Patient What is your living situation today?: I have a steady place to live Within the past 12 months, did the food you bought not last and you didn't have the money to get more?: Never true Within the past 12 months, did you worry whether your food would run out before you got money to buy more?: Never true Do you have trouble paying for medicines?: No Do you have trouble getting transportation to medical appointments?: No Do you have trouble paying your heating and electricity bill?: No Do you have trouble taking care of your child, family member or friend?: No Do you have trouble with day-to-day activities such as bathing, preparing meals, shopping, managing finances, etc.?: No Are you currently unemployed and looking for a job?: No Are you interested in more education?: No Please select the resources that you would like help with: None Currently or been in a relationship where the following occur: No concerns reported THRIVE Score: 0 AUDIT C Alcohol Use Questionnaire (AUDIT-C) 1. How often do you have a drink containing alcohol?: 2-3 times a week 2. How many drinks containing alcohol do you have on a typical day when you are drinking?: 3 or 4 3. How often do you have six or more drinks on one occasion?: Less than monthly Total Score: 5 Score Reviewed/Action Taken: Yes HAYLEE-7 AMB Questionnaire HAYLEE-7 Date HAYLEE - 7 assessed: 12/05/23 Feeling nervous, anxious, or on edge: 0 = Not at all Not being able to stop or control worryin = Not at all Worrying too much about different things: 0 = Not at all Trouble relaxin = Not at all Being so restless that it is hard to sit still: 0 = Not at all Becoming easily annoyed or irritable: 0 = Not at all Feeling afraid as if something awful might happen: 0 = Not at all Total HAYLEE-7 score (0-4 normal; 5-9 mild; 10-14 moderate; 15-21 severe): 0 Source: Developed by Drs. Kyle Acevedo, Esperanza Childers, Yordan Carr and colleagues, with an educational sheila from [employer]. HAYLEE-7 Assessment Billing HAYLEE-7 Assessment Tool: HAYLEE-7 Assessment 07324 Review of Systems Const Denies chills and Denies fever(s) ENT Denies epistaxis and Denies nasal discharge Card Denies chest pain Resp Denies chest congestion, Denies cough and Denies hemoptysis GI Denies diarrhea and Denies nausea Skin/Breast Denies rash Neuro Reports no additional complaints Psych Reports no additional complaints Endo Reports no additional complaints Physical exam (Primary Care) Vital Signs: Last Vital Signs Pulse 88 12/05/23 08:34 BP 128/78 12/05/23 08:34 Pulse Ox 98 12/05/23 08:34 Oxygen Delivery Method Room Air 12/05/23 08:34 BMI result Body Mass Index 26.1 Tobacco/Smoking Status: Tobacco use Status Tobacco use date assessed 12/05/23 12/05/23 08:38 Patient Tobacco Use Status Current someday Tobacco 12/05/23 08:35 e-Cigarette/Vaping Use Never Used 12/05/23 08:35 PHQ-9: PHQ-9 Score PHQ-9: Total score 0 12/05/23 08:52 Depression Screening Interpretation: Negative Thrive Assessment: Date of Thrive Assessment Date Thrive assessed 12/05/23 12/05/23 08:38 Currently or been in a relationship where the following occur: No concerns reported Const General: cooperative, comfortable and no acute distress Orientation/consciousness: patient oriented x3 HENMT Head: Yes normocephalic Eyes General: appearance normal, both eyes and all related structures Neck Neck: Yes supple Resp Effort & Inspection: normal respiratory effort, no cough and no stridor Cardio Rhythm: regular rhythm Heart sounds: S1 normal heart sound present and S2 normal heart sound present Skin General skin exam: turgor normal Neuro General: patient oriented x3, tone normal and moves all extremities Extrem Right lower extremity: no edema Left lower extremity: no edema Office Procedures Flu Questionnaire Does the patient have a severe egg allergy?: No Does the patient have severe life threatening allergies?: No Does the patient have a fever or illness today?: No Has the patient ever had Guillain-Graff Syndrome?: No Has the patient ever had any past reaction to a flu shot?: No Immunizations Fluarix Triv [id number] (PF) 45 mcg (15 mcg x 3)/0.5 mL IM syringe Performing Provider: Dirk Cardoza MD Performing Location: [facility] [place] [facility] Administered by: José Mane CMA on 12/05/23 08:52 Dose Route Admin Location Dispensed Lot Number Expiration Date NDC Cable Placer 0.5 mL IM Right Deltoid 0.5 mL [id number] 09/01/24 [id number] GROU.PS VIS Given Date VIS Provided VIS Publication Date 12/05/23 Single Vaccine 20 Eligibility Eligibility Date Funding Source Not [facility] Eligible 12/05/23 Private Coding Level of Care Code Est Pt Level 3 (79743) Diagnoses Anxiety, generalized F41.1 Paresthesia of left arm R20.2 Impaired fasting blood sugar R73.01 Anemia in other chronic diseases classified elsewhere D63.8 Anemia type: other cause Other causes of anemia: chronic disease, other Additional Codes HAYLEE-7 Assessment Billing - HAYLEE-7 Assessment Tool: HAYLEE-7 Assessment [id number] ([id number]) Assessment & Plan Assessment & Plan (1) Anxiety, generalized: Code(s): F41.1 - Generalized anxiety disorder Category: Medical (2) Paresthesia of left arm: Code(s): R20.2 - Paresthesia of skin Category: Medical (3) Impaired fasting blood sugar: Code(s): R73.01 - Impaired fasting glucose Category: Medical (4) Anemia: Code(s): D64.9 - Anemia, unspecified Category: Medical Qualifiers: Anemia type: other cause Other causes of anemia: chronic disease, other Qualified Code(s): D63.8 - Anemia in other chronic diseases classified elsewhere Plan 58-year-old gentleman came in today for six-month follow-up appointment Patient was supposed to do labs before this visit but I do not see them done Patient is slightly anemic most likely secondary to hemorrhoids Anxiety stable with sertraline He also have impaired fasting sugar that need to be monitored Paresthesia managed with gabapentin Continued to drink alcohol in moderation Offers no new complaints today He is due for colonoscopy but has not scheduled it yet He tells me that he will do that before his physical in 6 months Flu vaccine was given today Orders: Orders Influenza [id number] Immunization Today Z23 - Encounter for immunization Medications: Refilled sertraline 100 mg PO DAILY 90 tabs 0RF 90 days gabapentin 100 mg PO BEDTIME 90 caps 1RF 90 days
== END 2023-12-05 08:58 | disposition home or self-care (01) ==
PROVIDERS: PCP Internal Medicine; Visit Provider Internal Medicine
DX: Z23 Encounter for immunization (principal)

== ENCOUNTER → 2023-12-05 08:28 | Outpatient (BNVA) | payer OTHER, SELFPAY | LOC: CF 08:54 | PROVIDERS: PCP Internal Medicine; Visit Provider Internal Medicine | DX: F41.1 Generalized anxiety disorder (principal); R20.2 Paresthesia of skin; R73.01 Impaired fasting glucose; D64.9 Anemia, unspecified; Z23 Encounter for immunization | CPT/HCPCS: 90471; 90656; 96127 ==

== ENCOUNTER 2024-01-02 21:44 | Emergency (ER) | payer OTHER, SELFPAY ==
--- NOTE | 2024-01-02 | ECG_ITS ---
Test Reason : FALL Blood Pressure : / mmHG Vent. Rate : 074 BPM Atrial Rate : 074 BPM P-R Int : 200 ms QRS Dur : 090 ms QT Int : 404 ms P-R-T Axes : 061 058 046 degrees QTc Int : 448 ms Normal sinus rhythm Normal ECG When compared with ECG of 12-JAN-2021 23:35, No significant change was found Referred By: Generic ED Physician Electronically Signed By:KIM NOVOA
[2024-01-02 22:06] VITALS: BP 107/1; BP 93/64; PULSE 78; PULSE 92; RESP 18; TEMP 36.6; O2SAT 96; O2SAT 97; BMI 25.8
[2024-01-02 22:57] LABS: MANUAL DIFF FLAG NO
[2024-01-02 22:58] LABS: Basophils Absolute Auto 0.1 X10*3/uL (0.0-0.2); Basophils Percent Auto 0.6 % (0-2); Eosinophils Absolute Auto 0.1 X10*3/uL (0.0-0.4); Eosinophils Percent Auto 0.9 % (0-4); Hematocrit 35.6 % (42.0-52.0); Hemoglobin 12.8 g/dl (14.0-18.0); Imm Gran Abs Auto 0.05 X10*3/uL (0.00-0.03); Imm Gran Pct Auto 0.6 % (0.0-0.4); Lymphocytes Absolute Auto 1.7 X10*3/uL (1.2-4.9); Lymphocytes Percent Auto 19.5 % (20-40); Mean Corpuscular Hemoglobin 33.9 pg (27.0-33.0); Mean Corpuscular Volume 94.2 fL (80.0-98.0); Mean Platelet Volume 9.9 fL (9.4-12.4); Monocytes Absolute Auto 0.7 X10*3/uL (0.1-1.2); Monocytes Percent Auto 7.7 % (2-11); Neutrophils Percent Auto 70.7 % (45-73); Platelet Count 174 X10*3/uL (160-400); Red Blood Count 3.78 X10*6/uL (4.60-5.80); Red Cell Distribution Width 12.2 % (11.0-16.0); White Blood Count 8.5 X10*3/uL (4.8-10.8)
[2024-01-02 23:11] LABS: Alanine Aminotransferase 41 U/L (0-40); Albumin Level 3.9 g/dL (3.5-5.0); Alkaline Phosphatase 75 U/L (39-117); Anion Gap 16 (12-20); Aspartate Amino Transferase 35 U/L (5-37); Bilirubin Total 0.6 mg/dL (0.0-1.0); Blood Urea Nitrogen 19 mg/dL (9-16); Calcium 8.4 mg/dL (8.4-10.2); Carbon Dioxide 23 mmol/L (22-29); Chloride 105 mmol/L (96-108); Creatinine Clr Calc Pharmacy 87.6; Estimated Glomerular Filt Rate > 60; Glucose Random 113 mg/dL (60-115); Potassium 3.9 mmol/L (3.3-5.1); Sodium 140 mmol/L (135-145); Total Protein 6.3 g/dL (6.5-8.0)
[2024-01-02 23:52] LABS: Ethanol 95 mg/dL
--- NOTE | 2024-01-03 | ED_ITS ---
HPI - General Adult General Chief complaint: ETOH/Substance Use Stated complaint: had few drinks at bar, possible loc,n/v Time Seen by Provider: 01/02/24 23:31 Related Data Previous Rx's ?Medication ?Instructions ?Recorded gabapentin 100 mg capsule 100 mg PO BEDTIME 90 days #90 caps 12/05/23 sertraline 100 mg tablet 100 mg PO DAILY 90 days #90 tabs 12/05/23 Allergies Allergy/AdvReac Type Severity Reaction Status Date / Time No Known Allergies Allergy Unknown UNKNOWN Verified 01/02/24 22:11 [NO KNOWN ALLERGIES] PMFSH Past Medical History Surgical History Hx of colonoscopy Family History Family History Father CAD (coronary artery disease) Other Mental health disorder Substance use disorder Social History Social History Housing: House Alcohol intake: current Alcohol intake frequency: a few times a week Alcohol type: beer Patient Tobacco Use Status: Current someday Tobacco user Smoked in Last 30 Days: Yes e-Cigarette/Vaping Use: Never Used Use of substances other than those prescribed or required for medical reasons: Yes Substance Use Type: Marijuana Substance Use Frequency: Chronic Longstanding Last Used Substance: Just Prior to Admission Advance Directives: No Advance Directives Information Provided: No Do you have a plan to hurt others: No Plan service: No Current occupational status: employed Cognitive needs: No Hearing needs: No Vision needs: Yes Physical Exam ED Vital Signs: Vital Signs - 24 hr 01/02/24 22:06 Temperature 97.8 F Pulse Rate 78 Respiratory Rate 18 Blood Pressure 93/64 Pulse Oximetry 97 Oxygen Delivery Method Room Air BMI result Body Mass Index 25.8 Medical Decision Making Lab Data 01/02/24 22:54 01/02/24 22:54 Labs: Lab Results 01/02/24 Range/Units 22:54 WBC 8.5 (4.8-10.8) X10*3/uL RBC 3.78 L (4.60-5.80) X10*6/uL Hgb 12.8 L (14.0-18.0) g/dl Hct 35.6 L (42.0-52.0) % MCV 94.2 (80.0-98.0) fL MCH 33.9 H (27.0-33.0) pg MCHC 36.0 (31.0-36.0) g/dl RDW 12.2 (11.0-16.0) % Plt Count 174 (160-400) X10*3/uL MPV 9.9 (9.4-12.4) fL Immature Gran % (Auto) 0.6 H (0.0-0.4) % Neut % (Auto) 70.7 (45-73) % Lymph % (Auto) 19.5 L (20-40) % Mcleod % (Auto) 7.7 (2-11) % Eos % (Auto) 0.9 (0-4) % Baso % (Auto) 0.6 (0-2) % Lymph # (Auto) 1.7 (1.2-4.9) X10*3/uL Mcleod # (Auto) 0.7 (0.1-1.2) X10*3/uL Eos # (Auto) 0.1 (0.0-0.4) X10*3/uL Baso # (Auto) 0.1 (0.0-0.2) X10*3/uL Abs Immat Gran (auto) 0.05 H (0.00-0.03) X10*3/uL Absolute Neuts (auto) 6.0 (2.0-8.3) x10*3/uL Absolute Nucleated RBC 0.000 (0.0-0.012) X10*3/uL Nucleated RBC % (auto) 0.0 (0.0-0.2) /100WBC Sodium 140 (135-145) mmol/L Potassium 3.9 (3.3-5.1) mmol/L Chloride 105 (96-108) mmol/L Carbon Dioxide 23 (22-29) mmol/L Anion Gap 16 (12-20) BUN 19 H (9-16) mg/dL Creatinine 0.91 (0.5-1.4) mg/dL Estim Creat Clear Calc 87.6 Estimated GFR > 60 Random Glucose 113 (60-115) mg/dL Calcium 8.4 D (8.4-10.2) mg/dL Total Bilirubin 0.6 (0.0-1.0) mg/dL AST 35 (5-37) U/L ALT 41 H (0-40) U/L Alkaline Phosphatase 75 (39-117) U/L Total Protein 6.3 L (6.5-8.0) g/dL Albumin 3.9 (3.5-5.0) g/dL Ethyl Alcohol 95 mg/dL Discharge Plan Discharge Prescriptions: No Action gabapentin 100 mg capsule 100 mg PO BEDTIME 90 Days Qty: 90 1RF sertraline 100 mg tablet 100 mg PO DAILY 90 Days Qty: 90 0RF Print Language: Citizen [place]
--- NOTE | 2024-01-03 00:01 | ED.SYNCOPE ---
HPI - Syncope General Chief Complaint: ETOH/Substance Use Stated Complaint: had few drinks at bar, possible loc,n/v Time Seen by Provider: 01/02/24 23:31 Source: patient, family and EMS Mode of arrival: EMS Limitations: no limitations History of Present Illness HPI narrative: Patient is a 58-year-old male presents emergency department via EMS for evaluation. Patient's Leyla is at bedside. She states that she was with patient when syncopal episode occurred today. Patient reported having consumed approximately 10 beers and smoked marijuana. There was a reports that while they were sitting after eating he appeared to be spacing out and looked pale in color. When she asked whether he was feeling all right he said he needed to step outside for some fresh air. She saw him appearing a bit unsteady when standing outside the window, when she went outside to ask him if he was all right he had reported no ultimately leaned against the wall and sat himself down on the ground. She asked him for his keys and when he went to get them she reports that a syncopized. She states that he was unconscious for at least 3 minutes. 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 She denies him having falling forward or to the sides there was no head strike. She applied repetitive tactile stimuli and he eventually came to but seemed a bit disoriented. She states that he then had an episode of vomiting. Patient denies having any associated headache, lightheadedness, neck pain, chest pain, shortness of breath, palpitations, abdominal pain, hematochezia, melena, history of VTE, family history of sudden cardiac at a young age. He has had 3 similar episodes in the past typically while under the influence of alcohol. He had an inpatient hospital admission in 2020 for similar, a babar and unremarkable workup and happened outpatient echocardiogram which was normal Related Data Previous Rx's ?Medication ?Instructions ?Recorded gabapentin 100 mg capsule 100 mg PO BEDTIME 90 days #90 caps 12/05/23 sertraline 100 mg tablet 100 mg PO DAILY 90 days #90 tabs 12/05/23 Allergies Allergy/AdvReac Type Severity Reaction Status Date / Time No Known Allergies Allergy Unknown UNKNOWN Verified 01/02/24 22:11 [NO KNOWN ALLERGIES] Review of Systems Review of Systems: Yes all other systems are reviewed and are negative [facility] Past Medical History Attestation statement: The following information was validated with the patient. Source: old records reviewed Surgical History Hx of colonoscopy Family History Family History Father CAD (coronary artery disease) Other Mental health disorder Substance use disorder Social History Social History Housing: House Alcohol intake: current Alcohol intake frequency: a few times a week Alcohol type: beer Patient Tobacco Use Status: Current someday Tobacco user Smoked in Last 30 Days: Yes e-Cigarette/Vaping Use: Never Used Use of substances other than those prescribed or required for medical reasons: Yes Substance Use Type: Marijuana Substance Use Frequency: Chronic Longstanding Last Used Substance: Just Prior to Admission Advance Directives: No Advance Directives Information Provided: No Do you have a plan to hurt others: No Plan service: No Current occupational status: employed Cognitive needs: No Hearing needs: No Vision needs: Yes Physical Exam Vital Signs: Vital Signs: Last Vital Signs Temp 97.8 F 01/02/24 22:06 Pulse 78 01/02/24 22:06 Resp 18 01/02/24 22:06 BP 93/64 01/02/24 22:06 Pulse Ox 97 01/02/24 22:06 O2 Del Method Room Air 01/02/24 22:06 BMI result Body Mass Index 25.8 Appearance: Alert.?Oriented to person, place and time. No acute distress.?Normal affect. Eyes: Pupils equal, round and reactive to light.? EOMI. No nystagmus. ENT: Pharynx normal.?? Neck: Normal inspection.? Neck supple.??Full range of motion. No rigidity. CVS: Heart sounds normal. Normal heart rate and rhythm.? Pulses normal.?? Respiratory: No respiratory distress.? Lung sounds clear to auscultation bilaterally?? Abdomen: Soft and non-tender. Normoactive bowel sounds. No pulsatile mass.?? Skin: Skin warm and dry.? Normal skin color.? ? Extremities: No lower extremity edema.? No calf ttp? Neuro: Moves all extremities spontaneously. Sensation intact bilaterally. CN II-XII intact. No focal neuro deficits. Ambulates with normal steady gait. Medical Decision Making Medical Decision Making MDM Narrative: Patient is a 58-year-old male with past anxiety, impaired fasting glucose, anemia, prior snow was closed emergency department for evaluation syncope in the setting of assumption and marijuana a at the time my evaluation with the UR well, hives, afebrile. Focal neurological deficits. He is speaking clear full sentences. Arousable to minimal viable stimuli. He is conscious alert and oriented x4. He offers no physical complaints at this time. Denies associated chest pain, shortness of breath, palpitations and was not during exercise/exertion to suggest aortic stenosis, ACS, pulmonary embolism, pericardial effusion, aortic dissection. No focal neurological deficits, diplopia, or associated headache to suggest SAH, CVA, basilar insufficiency. No history of coronary artery disease, family history of sudden cardiac . EKG without acute ischemic findings or concerning arrhythmia or AV block. No history of seizure disorder no bladder bowel dysfunction. As noted in HPI he has had similar episodes previously. As far as I can tell he has not had any Holter monitoring for prolonged evaluation potential arrhythmia. He did have episode of vomiting after the syncope, it is possible that this may have been a vagal episode. Serum labs were obtained he has no leukocytosis, has a mild normocytic anemia consistent with based on the sent me transfusion criteria no thrombocytopenia. No electrolyte derangement. No MARY. High sensitive troponin below detectable limits, EKG is without acute ischemic abnormalities or evidence of arrhythmia. I discussed this case my attending Dr. Healy who agrees. He is ambulatory with a steady gait. At this time I feel that he is stable for discharge, recommend outpatient follow-up with primary care doctor for Holter monitoring and strict return precautions to the emergency department. Differential Diagnosis Differential Diagnoses: The differential diagnosis associated with the presentation includes (See narrative above) Admission/Observation Consideration of admission/observation: Escalation of care including admission/observation considered (See narrative above) Lab Data [facility] Lab Attestation statement: I reviewed the patient's lab results. (See narrative above) 01/02/24 22:54 01/02/24 22:54 Labs: Lab Results 01/02/24 Range/Units 22:54 WBC 8.5 (4.8-10.8) X10*3/uL RBC 3.78 L (4.60-5.80) X10*6/uL Hgb 12.8 L (14.0-18.0) g/dl Hct 35.6 L (42.0-52.0) % MCV 94.2 (80.0-98.0) fL MCH 33.9 H (27.0-33.0) pg MCHC 36.0 (31.0-36.0) g/dl RDW 12.2 (11.0-16.0) % Plt Count 174 (160-400) X10*3/uL MPV 9.9 (9.4-12.4) fL Immature Gran % (Auto) 0.6 H (0.0-0.4) % Neut % (Auto) 70.7 (45-73) % Lymph % (Auto) 19.5 L (20-40) % [place] % (Auto) 7.7 (2-11) % Eos % (Auto) 0.9 (0-4) % Baso % (Auto) 0.6 (0-2) % Lymph # (Auto) 1.7 (1.2-4.9) X10*3/uL [place] # (Auto) 0.7 (0.1-1.2) X10*3/uL Eos # (Auto) 0.1 (0.0-0.4) X10*3/uL Baso # (Auto) 0.1 (0.0-0.2) X10*3/uL Abs Immat Gran (auto) 0.05 H (0.00-0.03) X10*3/uL Absolute Neuts (auto) 6.0 (2.0-8.3) x10*3/uL Absolute Nucleated RBC 0.000 (0.0-0.012) X10*3/uL Nucleated RBC % (auto) 0.0 (0.0-0.2) /100WBC Sodium 140 (135-145) mmol/L Potassium 3.9 (3.3-5.1) mmol/L Chloride 105 (96-108) mmol/L Carbon Dioxide 23 (22-29) mmol/L Anion Gap 16 (12-20) BUN 19 H (9-16) mg/dL Creatinine 0.91 (0.5-1.4) mg/dL Estim Creat Clear Calc 87.6 Estimated GFR > 60 Random Glucose 113 (60-115) mg/dL Calcium 8.4 D (8.4-10.2) mg/dL Total Bilirubin 0.6 (0.0-1.0) mg/dL AST 35 (5-37) U/L ALT 41 H (0-40) U/L Alkaline Phosphatase 75 (39-117) U/L Total Protein 6.3 L (6.5-8.0) g/dL Albumin 3.9 (3.5-5.0) g/dL Ethyl Alcohol 95 mg/dL Independent Interpretation I performed an independent interpretation of an: EKG Interpretation: Rate: 74 Rhythm:? Normal Sinus rhythm Normal P waves.? Normal FARAZ.?? Normal QRS complex.?? ST T wave :??No ST elevation, no ST depression, no T-wave inversion qTC: 448 prior studies:? January of 2021 The study has been interpreted contemporaneously by me. Independent Historian Clinical information obtained from an independent historian. History obtained from or confirmed by: Spouse and EMS External Record Review External record reviewed: Inpatient record and Outpatient record Tests considered The following testing was considered but not selected: See narrative above Chronic Conditions Patient?s care impacted by: Other (Anemia) Discharge Plan Discharge Clinical Impression: Syncope Patient Disposition: Home, Self-Care Instructions: Syncope (ED) Additional Instructions: As discussed, blood work and EKG today were very reassuring. As this is not the first episode you have had similar episodes in the past, I recommend contacting your primary care doctor's office tomorrow to arrange for outpatient Holter monitoring. This includes wearing a nurse monitoring for a prolonged period of time to evaluate for any abnormal heart rhythms that might suggest a cause for these symptoms occurring. It is possible that the alcohol consumption may played a role in this, also considering vomiting afterwards it is possible that was a vasovagal response to nausea. Please be sure that you are staying well hydrated, consuming frequent meals, refraining from alcohol consumption Prescriptions: No Action gabapentin 100 mg capsule 100 mg PO BEDTIME 90 Days Qty: 90 1RF sertraline 100 mg tablet 100 mg PO DAILY 90 Days Qty: 90 0RF Referrals: Dirk Cardoza MD [Physician] - Print Language: Yoruba
[2024-01-03 00:04] LABS: Troponin-I High Sensitivity < 2.7 ng/L (<3.5-35.0)
[2024-01-03 01:25] VITALS: BP 132/83; PULSE 89; RESP 16; TEMP 36.8; O2SAT 98
== END 2024-01-03 01:26 | disposition home or self-care (01) ==
PROVIDERS: Nurse Practitioner Family; Emergency Provider Emergency Medicine
DX: R55 Syncope and collapse (principal); F12.90 Cannabis use, unspecified, uncomplicated; F10.90 Alcohol use, unspecified, uncomplicated; Y90.4 Blood alcohol level of 80-99 mg/100 ml; Z79.899 Other long term (current) drug therapy
CPT/HCPCS: 36415; 80053; 80307; 84484; 85025; 93005; 99284

== ENCOUNTER → 2024-01-02 22:49 | Outpatient (BNV) | payer OTHER, SELFPAY | PROVIDERS: Emergency Provider Emergency Medicine; Visit Provider Internal Medicine | DX: R55 Syncope and collapse (principal) | CPT/HCPCS: 93010 ==

== ENCOUNTER 2024-01-09 13:10 | Outpatient (AMB) | payer OTHER, SELFPAY ==
[2024-01-09 13:12] VITALS: BP 112/76; PULSE 90; O2SAT 97; BMI 25.7
--- NOTE | 2024-01-09 13:12 | A.OFFPC_ITS ---
Vital Signs 01/09/24 13:12 Height 5 ft 8 in Weight 169 lb 4 oz BMI 25.7 BP 112/76 Blood Pressure Location Rt brachial Position Sitting Pulse 90 Pulse Source Pulse Oximeter Pulse Oximetry (%) 97 Oxygen Delivery Method Room Air Intake Visit Reasons: HDF ~ Post hospital discharge FU Allergies No Known Allergies [NO KNOWN ALLERGIES] Allergy (Unknown, Verified 01/09/24 13:13) UNKNOWN Medication List - Last Reconciled 01/09/24 by Dirk Cardoza MD gabapentin 100 mg PO BEDTIME 90 days sertraline 100 mg PO DAILY 90 days Tobacco use date assessed: 01/09/24 Dental Screening Dental Screen Date: 01/09/24 Did you have a dental visit in the last 12 months?: Yes Did you have a dental problem in the last 6 months where you did not have access to dental care?: No Was dental information given to patient?: Patient has dentist HPI HDF ~ Post hospital discharge FU HPI Details Patient is a 58-year-old gentleman presented to [facility] Emergency room on 01/02/2024 Patient presented via EMS for evaluation. Patient's was with him Patient smoked marijuana and consume 10 beers before he passed out There was no head trauma Patient previously had similar symptom and was evaluated in 2020 with unremarkab le workup And echocardiogram which was normal His medications are gabapentin at bedtime And sertraline 100 mg for anxiety and depression Hemoglobin was 12.8 Kidney functions intact electrolytes intact ALT was 41 EKG did not show any signs of ischemia Emergency room physician recommended to do a Holter monitor as an outpatient Patient was discharged after evaluation He came in today for follow-up We had a detailed discussion about drinking and smoking marijuana It seems as if patient have lot of time in his hand He will think about occupying that time with something that will make him happy other than drinking and smoking Getting a 2nd job is consideration I have ordered Holter monitor for the [facility] History Hx of colonoscopy Family History Father CAD (coronary artery disease) Other Mental health disorder Substance use disorder Social History Housing: House Alcohol intake: current Alcohol intake frequency: a few times a week Alcohol type: beer Patient Tobacco Use Status: Current someday Tobacco user e-Cigarette/Vaping Use: Never Used Substance Use Type: Marijuana service: No Current occupational status: employed Cognitive needs: No Hearing needs: No Vision needs: Yes Questionnaire Thrive Questionnaire Date Thrive assessed: 01/09/24 I am a: Patient What is your living situation today?: I have a steady place to live Within the past 12 months, did the food you bought not last and you didn't have the money to get more?: Never true Within the past 12 months, did you worry whether your food would run out before you got money to buy more?: Never true Do you have trouble paying for medicines?: No Do you have trouble getting transportation to medical appointments?: No Do you have trouble paying your heating and electricity bill?: No Do you have trouble taking care of your child, family member or friend?: No Do you have trouble with day-to-day activities such as bathing, preparing meals, shopping, managing finances, etc.?: No Are you currently unemployed and looking for a job?: No Are you interested in more education?: No Please select the resources that you would like help with: None Currently or been in a relationship where the following occur: No concerns reported THRIVE Score: 0 AUDIT C Alcohol Use Questionnaire (AUDIT-C) 1. How often do you have a drink containing alcohol?: 2-3 times a week 2. How many drinks containing alcohol do you have on a typical day when you are drinking?: 3 or 4 3. How often do you have six or more drinks on one occasion?: Less than monthly Total Score: 5 Score Reviewed/Action Taken: Yes HAYLEE-7 AMB Questionnaire HAYLEE-7 Date HAYLEE - 7 assessed: 12/05/23 Source: Developed by Drs. Kyle Acevedo, Esperanza Childers, Yordan Carr and colleagues, with an educational sheila from [employer]. Review of Systems Const Denies chills and Denies fever(s) ENT Denies epistaxis and Denies nasal discharge Card Denies chest pain Resp Denies chest congestion, Denies cough and Denies hemoptysis GI Denies diarrhea and Denies nausea Skin/Breast Denies rash Neuro Reports no additional complaints Psych Reports no additional complaints Endo Reports no additional complaints Physical exam (Primary Care) Vital Signs: Last Vital Signs Pulse 90 01/09/24 13:12 BP 112/76 01/09/24 13:12 Pulse Ox 97 01/09/24 13:12 Oxygen Delivery Method Room Air 01/09/24 13:12 BMI result Body Mass Index 25.7 Tobacco/Smoking Status: Tobacco use Status Tobacco use date assessed 12/05/23 12/05/23 08:38 Patient Tobacco Use Status Current someday Tobacco 12/05/23 08:35 e-Cigarette/Vaping Use Never Used 12/05/23 08:35 Thrive Assessment: Date of Thrive Assessment Date Thrive assessed 11/28/23 01/06/24 12:30 Currently or been in a relationship where the following occur: No concerns reported Const General: cooperative, comfortable and no acute distress Orientation/consciousness: patient oriented x3 HENMT Head: Yes normocephalic Eyes General: appearance normal, both eyes and all related structures Neck Neck: Yes supple Resp Effort & Inspection: normal respiratory effort, no cough and no stridor Cardio Rhythm: regular rhythm Heart sounds: S1 normal heart sound present and S2 normal heart sound present Skin General skin exam: turgor normal Neuro General: patient oriented x3, tone normal and moves all extremities Extrem Right lower extremity: no edema Left lower extremity: no edema Coding Level of Care Code Est Pt Level 4 (39397) Diagnoses Vasovagal syncope R55 Syncope type: vasovagal syncope Alcoholism F10.20 Marijuana dependence F12.20 Anxiety, generalized F41.1 Assessment & Plan Assessment & Plan (1) Syncope: Code(s): R55 - Syncope and collapse Category: Medical Qualifiers: Syncope type: vasovagal syncope Qualified Code(s): R55 - Syncope and collapse (2) Alcoholism: Code(s): F10.20 - Alcohol dependence, uncomplicated Category: Medical (3) Marijuana dependence: Code(s): F12.20 - Cannabis dependence, uncomplicated Category: Medical (4) Anxiety, generalized: Code(s): F41.1 - Generalized anxiety disorder Category: Medical Plan Patient is a 58-year-old gentleman presented to [facility] Emergency room on 01/02/2024 Patient presented via EMS for evaluation. Patient's was with him Patient smoked marijuana and consume 10 beers before he passed out There was no head trauma Patient previously had similar symptom and was evaluated in 2020 with unremarkable workup And echocardiogram which was normal His medications are gabapentin at bedtime And sertraline 100 mg for anxiety and depression Hemoglobin was 12.8 Kidney functions intact electrolytes intact ALT was 41 EKG did not show any signs of ischemia Emergency room physician recommended to do a Holter monitor as an outpatient Patient was discharged after evaluation He came in today for follow-up We had a detailed discussion about drinking and smoking marijuana It seems as if patient have lot of time in his hand He will think about occupying that time with something that will make him happy other than drinking and smoking Getting a 2nd job is consideration I have ordered Holter monitor for the patient Orders: Orders ECG 5 day holter monitor Today R55 - Syncope and collapse Medications: Changed From sertraline 100 mg PO DAILY 90 days 90 tabs 0RF To sertraline 100 mg PO .qd 90 days 90 tabs 1RF
== END 2024-01-09 14:27 | disposition home or self-care (01) ==
LOC: HO.HMCC 13:10
PROVIDERS: Visit Provider Internal Medicine
DX: R55 Syncope and collapse (principal); F10.20 Alcohol dependence, uncomplicated; F12.20 Cannabis dependence, uncomplicated; F41.1 Generalized anxiety disorder

== ENCOUNTER → 2024-01-09 13:10 | Outpatient (BNVA) | payer OTHER, SELFPAY | PROVIDERS: Visit Provider Internal Medicine ==

== ENCOUNTER → 2024-01-15 13:45 | Outpatient (REF) | payer OTHER, SELFPAY ==
--- NOTE | 2024-01-15 13:48 | HM_ITS ---
Conclusion: 1. Patient was monitored for total period of 5 days 2. Baseline was normal sinus rhythm with average heart of 83 beats per minute 3. Occasional PVCs noted 4. No significant pauses noted 5. No patient reported events MTDD
== END ==
LOC: HO.CARD 13:45
PROVIDERS: PCP Internal Medicine; Visit Provider Internal Medicine
DX: R55 Syncope and collapse (principal)
CPT/HCPCS: 93242

== ENCOUNTER → 2024-01-15 13:48 | Outpatient (BNV) | payer OTHER, SELFPAY | PROVIDERS: PCP Internal Medicine; Visit Provider Internal Medicine Cardiovascular Disease | DX: I49.3 Ventricular premature depolarization (principal) | CPT/HCPCS: 93244 ==

== ENCOUNTER 2024-05-01 07:37 | Outpatient (REF) | payer OTHER, SELFPAY ==
[2024-05-01 10:14] LABS: MANUAL DIFF FLAG NO
[2024-05-01 10:18] LABS: Basophils Absolute Auto 0.1 X10*3/uL (0.0-0.2); Basophils Percent Auto 0.8 % (0-2); Eosinophils Absolute Auto 0.2 X10*3/uL (0.0-0.4); Eosinophils Percent Auto 3.7 % (0-4); Hematocrit 38.4 % (42.0-52.0); Hemoglobin 13.6 g/dl (14.0-18.0); Imm Gran Abs Auto 0.02 X10*3/uL (0.00-0.03); Imm Gran Pct Auto 0.3 % (0.0-0.4); Lymphocytes Absolute Auto 2.1 X10*3/uL (1.2-4.9); Lymphocytes Percent Auto 32.5 % (20-40); Mean Corpuscular HGB Conc 35.4 g/dl (31.0-36.0); Mean Corpuscular Hemoglobin 32.4 pg (27.0-33.0); Mean Corpuscular Volume 91.4 fL (80.0-98.0); Monocytes Absolute Auto 0.6 X10*3/uL (0.1-1.2); Monocytes Percent Auto 8.9 % (2-11); Neutrophils Absolute Auto 3.4 x10*3/uL (2.0-8.3); Neutrophils Percent Auto 53.8 % (45-73); Platelet Count 214 X10*3/uL (160-400); Red Cell Distribution Width 12.1 % (11.0-16.0); White Blood Count 6.3 X10*3/uL (4.8-10.8)
[2024-05-01 10:24] LABS: Estimated Average Glucose 103 mg/dL; Hemoglobin A1C 117.7071 umol/L; Hemoglobin A1c % 5.2 % (<6.0); Total Hemoglobin (HGBA1C) 3586.9452 umol/L
[2024-05-01 10:39] LABS: Alanine Aminotransferase 38 U/L (0-40); Albumin Level 4.2 g/dL (3.5-5.0); Alkaline Phosphatase 72 U/L (39-117); Anion Gap 11 (12-20); Aspartate Amino Transferase 35 U/L (5-37); Bilirubin Total 0.6 mg/dL (0.0-1.0); Blood Urea Nitrogen 17 mg/dL (9-16); Calcium 8.7 mg/dL (8.4-10.2); Carbon Dioxide 26 mmol/L (22-29); Chloride 109 mmol/L (96-108); Estimated Glomerular Filt Rate > 60; Glucose Random 98 mg/dL (60-115); Potassium 4.2 mmol/L (3.3-5.1); Sodium 142 mmol/L (135-145); Total Protein 7.1 g/dL (6.5-8.0)
[2024-05-01 11:14] LABS: HBS Num1 9.72 mIU/mL (0-7.99)
[2024-05-01 12:34] LABS: HBS Num2 10.06 mIU/mL (0-7.99); HBS Num3 9.63 mIU/mL (0-7.99)
[2024-05-01 12:35] LABS: ~Hepatitis B Surface Antibody GRAYZONE (Nonreactive)
== END 2024-05-01 07:38 | disposition home or self-care (01) ==
LOC: HO.HMGCLDS 07:37
PROVIDERS: PCP Internal Medicine; Visit Provider Internal Medicine
DX: R73.01 Impaired fasting glucose (principal); K64.0 First degree hemorrhoids; D63.8 Anemia in other chronic diseases classified elsewhere; F41.1 Generalized anxiety disorder
CPT/HCPCS: 36415; 80053; 83036; 85025; 86706

== ENCOUNTER 2024-05-19 11:50 | Outpatient (AMB) | payer OTHER, SELFPAY ==
--- NOTE | 2024-05-19 11:52 | A.OFFVIS_ITS ---
Vital Signs 05/19/24 12:00 Height 5 ft 8 in Weight 178 lb 2.136 oz BMI 27.1 BP 136/88 Blood Pressure Location Rt brachial Position Sitting Pulse 88 Pulse Source Pulse Oximeter Pulse Oximetry (%) 97 Oxygen Delivery Method Room Air Intake Visit Reasons: [place] consult. Est since Intake Note: ESTABLISHED PATIENT for 2nd lifetime colo screening. Chief Complaint; Pt denies any GI concerns at this time. Last colo x3 years ago via . Fair prep, needs extra laxative or clear liquid diet extension. 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 Est since : Details: LAST VISIT Status post colonoscopy Patient denies any ill effects from the prep, anesthesia or procedure itself. Suboptimal prep and patient is to return in 2 years. No polyps found the. Patient will need to have additional Dulcolax daily for of 1 week before the procedure Internal hemorrhoid [id number]-[id number]-size internal hemorrhoids. Patient denies any rectal pain or discomfort. He does report to have blood on the tissue when he wiped in the past. However patient reports that has not happened in a long time. We will see him on as needed basis. Patient will call us if you have any GI concerning issues. Patient is agreeable to this plan and verbalizes understanding of instructions. He was given the opportunity to ask questions and all questions answered. ? TODAY'S VISIT Patient is here today as he is due to go for colonoscopy. Last colonoscopy suboptimal prep and he was recommended to return in 2 years for another colonoscopy. Patient reports that he is moving his bowels well without any issues. Denies any issues with anesthesia in the past. No history of sleep apnea. Not on any anticoagulation medication. Patient denies any family history of CRC. Denies melena, hematochezia, unintentional weight loss or ribbon like stools. Patient reports occasional bleeding with hemorrhoids. PFSH Medical History Nerve pain Anxiety and depression Surgical History Hx of colonoscopy Family History Father CAD (coronary artery disease) Other Mental health disorder Substance use disorder Social History Housing: House Alcohol intake: current Alcohol intake frequency: a few times a week Alcohol type: beer Patient Tobacco Use Status: Current someday Tobacco user e-Cigarette/Vaping Use: Never Used Substance Use Type: Marijuana service: No Current occupational status: employed Cognitive needs: No Hearing needs: No Vision needs: Yes Review of Systems Const Denies weight gain and Denies weight loss ENT Reports no additional complaints, Denies dysphagia and Denies odynophagia Card Reports no additional complaints Resp Reports no additional complaints GI Denies abdominal pain, Denies belching, Denies melena, Denies bloating, Denies change in bowel habits, Denies dysphagia, Denies excessive flatus, Denies dyspepsia, Denies heartburn, Denies diarrhea, Denies loose stools, Denies nausea, Denies odynophagia and Denies vomiting Reports no additional complaints Musc Reports no additional complaints Neuro Reports no additional complaints Psych Reports no additional complaints Endo Reports no additional complaints Physical Exam Vital Signs: Last Vital Signs Pulse 88 05/19/24 12:00 BP 136/88 05/19/24 12:00 Pulse Ox 97 05/19/24 12:00 Oxygen Delivery Method Room Air 05/19/24 12:00 BMI result Body Mass Index 27.1 Const General: healthy appearing, no acute distress and well developed Nutritional Appearance: well nourished Orientation/consciousness: patient oriented x3 Resp Effort & Inspection: normal respiratory effort, able to speak in complete sentences, no tracheal deviation and symmetric chest movement Auscultation: clear to auscultation bilaterally Cardio Rate: regular rate GI Inspection: Yes normal to inspection and No distended Palpation (GI): Soft to palpation, not firm, nontender and No hepatosplenomegaly present Auscultation: normal bowel sounds General: Yes no CVA tenderness Back/Spine/Pelvis Back: no CVA tenderness Skin General skin exam: elasticity normal, turgor normal and dry skin Neuro General: patient oriented x3 Psych Appearance: grossly normal Mental Status: mental status grossly normal Assessment & Plan Assessment & Plan (1) Hemorrhoids: Code(s): K64.9 - Unspecified hemorrhoids Category: Medical Qualifiers: Hemorrhoid type: first degree Qualified Code(s): K64.0 - First degree hemorrhoids (2) Colon cancer screening: Code(s): Z12.11 - Encounter for screening for malignant neoplasm of colon Category: Medical Plan Stressed the importance of good bowel prep with patient. Patient will try to have light dinner the day before he will prep for colonoscopy. He will start taking Dulcolax 1 week before the procedure. Proctosol send to pharmacy. Stressed the importance of clear liquid diet day before procedure and following the instruction with prepping. Patient denies having any issues with constipation. Not on any anticoagulation medication. No history of sleep apnea. 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 Patient is agreeable to current plan of care and verbalizes understanding of instructions. He was given the opportunity to ask questions and all questions answered. Thank you for allowing me to participate in his care Medications: New bisacodyl (Dulcolax (bisacodyl)) Start taking 2 tablet every night 7 days before the procedure and 1 day before procedure take 4 tablets at noon time followed by MiraLax prep 10 mg (2 x 5 mg) PO BEDTIME 16 tabs 0RF Z12.11 - Encounter for screening for malignant neoplasm of colon polyethylene glycol 3350 (Miralax) As directed by gastro[facility]ology department at [facility] 238 grams PO ONCE 238 grams 0RF Z12.11 - Encounter for screening for malignant neoplasm of colon hydrocortisone 2.5% (Proctosol HC) 1 appl MS BID-QID PRN 30 grams 2RF hemorrhoids K64.9 - Unspecified hemorrhoids Coding Level of Care Code Est Pt Level 3 (15104) Diagnoses Grade I hemorrhoids K64.0 Hemorrhoid type: first degree Colon cancer screening Z12.11 Time Spent (min) 35 Comment 25 minutes spent with patient and additional 10 minutes spent reviewing his records
[2024-05-19 12:00] VITALS: BP 136/88; PULSE 88; O2SAT 97; BMI 27.1
== END 2024-05-19 12:43 | disposition home or self-care (01) ==
LOC: HO.HGI 11:52
PROVIDERS: PCP Internal Medicine; Visit Provider Nurse Practitioner Family
DX: Z01.818 Encounter for other preprocedural examination (principal); Z12.11 Encounter for screening for malignant neoplasm of colon; K64.0 First degree hemorrhoids
CPT/HCPCS: 99212

== ENCOUNTER 2024-07-09 08:24 | Outpatient (AMB) | payer OTHER, SELFPAY ==
--- NOTE | 2024-07-09 08:28 | A.OFFPC_ITS ---
Vital Signs 07/09/24 08:29 Height 5 ft 8 in Weight 176 lb 8 oz BMI 26.8 BP 118/78 Blood Pressure Location Rt brachial Position Sitting Pulse 96 Pulse Source Pulse Oximeter Pulse Oximetry (%) 93 Oxygen Delivery Method Room Air Intake Visit Reasons: Annual PE Allergies No Known Allergies [NO KNOWN ALLERGIES] Allergy (Unknown, Verified 07/09/24 08:34) UNKNOWN Medication List - Last Reconciled 07/09/24 by Dirk Cardoza MD bisacodyl (Dulcolax (bisacodyl)) 10 mg (2 x 5 mg) PO BEDTIME gabapentin 100 mg PO BEDTIME 90 days hydrocortisone 2.5% (Proctosol HC) 1 appl [place] BID-QID PRN polyethylene glycol 3350 (Miralax) 238 grams PO ONCE sertraline 100 mg PO .qd 90 days Tobacco use date assessed: 07/09/24 Dental Screening Dental Screen Date: 07/09/24 Did you have a dental visit in the last 12 months?: Yes Did you have a dental problem in the last 6 months where you did not have access to dental care?: No Was dental information given to patient?: Patient has dentist HPI Annual PE HPI Details - The patient is a 59-year-old male pres enting with the primary reason for a routine physical examination. - Previously experienced a shoulder inju ry due to a fall on ice in May, resulting in soreness and limited motion, particularly when extending above lateral positions. - Diagnosed with anxiety disorder, which has been consistently managed over the past six months without symptoms of exacerbation. - Has a history of neuropathy, primarily affecting the feet, managed with gabapentin. - Reports hemorrhoidal bleeding, prescri ption provided for management of flare- ups. - Exhibits mild anemia noted from previo us laboratory results in April. - Recently experienced a gastrointestina l illness with symptoms of vomiting and diarrhea, leading to the rescheduling of a colonoscopy. Alcohol score is still high even though patient tells me that he has stopped drinking Health Maintenance - Tdap vaccine received in 2020, up to d ate. - Undergone lab work in April: slight anemia noted, electrolytes, kidney functions, blood sugar, and liver enzymes normal. - LDL cholesterol recorded at 76 from year's test, indicating no cholesterol management requirement. - Patient has ceased alcohol consumption for the last six months and stopped using marijuana altogether. - Recommended utilization of multivitami ns with iron for anemia. Diagnostic results - Labs: Slight anemia noted from Februar y; normal electrolytes, kidney functions, blood sugar, and liver enzymes. Patient Instructions - Continue efforts to reschedule the col onoscopy. - Consider physical therapy for shoulder injury to aid in recovery and regain motion. Order placed - Maintain current use of prescribed med ications. - Ensure adequate intake of multivitamin s with iron to address anemia. - Schedule appointments directly with [facility] physical therapy department. Review of Systems - General: No fever no chills - Neurological: No headaches no dizzin ess - Ear nose throat: No sore throat no hearing difficulty no ear pain - Cardiovascular: No syncope, no chest pain, no palpitations - Gastrointestinal: No nausea vomiting or diarrhea - Endocrine: No polyuria polydipsia no heat intolerance - Genitourinary: No dysuria - Skin: No new complaints Physical Exam General: Cooperative, healthy appearing, comfortable, no acute distress Orientation: Patient oriented x3 Head: Normal to inspection Ears: Within normal limit visually Nose: Normal external nose present Face and sinus: Normal facial exam Eyes: Appearance normal, extraocular movement intact pupils reactive Neck: Normal visual inspection and supple Respiratory: Normal respiratory effort and able to speak in complete sentences. Clear to auscultation, no stridor Cardiovascular: S1 and S2 RRR GI: Normal to inspection. Soft to palpation and nontender Skin: Turgor normal, no acute findings Neuro: Patient oriented x3, motor sensory intact, balance intact, tandem pass Extremities: Normal to inspection, except for right shoulder with limited motion and soreness due to a fall in May. No swelling of ankles or knees. [facility] Medical History Tobacco use disorder Marijuana dependence Nerve pain Anxiety and depression Surgical History Hx of colonoscopy Family History Father CAD (coronary artery disease) Other Mental health disorder Substance use disorder Social History Housing: House Alcohol intake: current Alcohol intake frequency: a few times a week Alcohol type: beer Patient Tobacco Use Status: Current someday Tobacco user e-Cigarette/Vaping Use: Never Used Substance Use Type: Marijuana service: No Current occupational status: employed Cognitive needs: No Hearing needs: No Vision needs: Yes Questionnaire PHQ-9 Over the last 2 weeks, how often have you been bothered by any of the following problems? 1. Little interest or pleasure in doing things: not at all 2. Feeling down, depressed, or hopeless: not at all 3. Trouble falling or staying asleep, or sleeping too much: not at all 4. Feeling tired or having little energy: not at all 5. Poor appetite or overeating: not at all 6. Feeling bad about yourself - or that you are a failure or have let yourself or your family down: not at all 7. Trouble concentrating on things, such as reading the newspaper or watching television: not at all 8. Moving or speaking so slowly that other people could have noticed. Or the opposite - being so fidgety or restless that you have been moving around a lot more than usual: not at all 9. Thoughts that you would be better off or of hurting yourself in some way: not at all Total score: 0 Depression Screening Interpretation: Negative Depression Screening Done: Yes 22471 - PHQ-9 Billing: Yes Source: Developed by Drs. Kyle Acevedo, Esperanza Childers, Yordan Carr and colleagues, with an educational sheila from [employer]. Thrive Questionnaire Date Thrive assessed: 07/09/24 I am a: Patient What is your living situation today?: I have a steady place to live Within the past 12 months, did the food you bought not last and you didn't have the money to get more?: Never true Within the past 12 months, did you worry whether your food would run out before you got money to buy more?: Never true Do you have trouble paying for medicines?: No Do you have trouble getting transportation to medical appointments?: No Do you have trouble paying your heating and electricity bill?: No Do you have trouble taking care of your child, family member or friend?: No Do you have trouble with day-to-day activities such as bathing, preparing meals, shopping, managing finances, etc.?: No Are you currently unemployed and looking for a job?: No Are you interested in more education?: No Please select the resources that you would like help with: None Currently or been in a relationship where the following occur: No concerns reported THRIVE Score: 0 AUDIT C Alcohol Use Questionnaire (AUDIT-C) 1. How often do you have a drink containing alcohol?: 2-3 times a week 2. How many drinks containing alcohol do you have on a typical day when you are drinking?: 5 or 6 3. How often do you have six or more drinks on one occasion?: Weekly Total Score: 8 Score Reviewed/Action Taken: Yes HAYLEE-7 AMB Questionnaire HAYLEE-7 Date HAYLEE - 7 assessed: 07/09/24 Feeling nervous, anxious, or on edge: 0 = Not at all Not being able to stop or control worryin = Not at all Worrying too much about different things: 0 = Not at all Trouble relaxin = Not at all Being so restless that it is hard to sit still: 0 = Not at all Becoming easily annoyed or irritable: 0 = Not at all Feeling afraid as if something awful might happen: 0 = Not at all Total HAYLEE-7 score (0-4 normal; 5-9 mild; 10-14 moderate; 15-21 severe): 0 Source: Developed by Drs. Kyle Acevedo, Esperanza Childers, Yordan Carr and colleagues, with an educational sheila from [employer]. HAYLEE-7 Assessment Billing HAYLEE-7 Assessment Tool: HAYLEE-7 Assessment 67143 Physical exam (Primary Care) Vital Signs: Last Vital Signs Pulse 96 07/09/24 08:29 BP 118/78 07/09/24 08:29 Pulse Ox 93 07/09/24 08:29 Oxygen Delivery Method Room Air 07/09/24 08:29 BMI result Body Mass Index 26.8 Tobacco/Smoking Status: Tobacco use Status Tobacco use date assessed 07/09/24 07/09/24 08:31 Patient Tobacco Use Status Current someday Tobacco 07/09/24 08:31 e-Cigarette/Vaping Use Never Used 07/09/24 08:31 PHQ-9: PHQ-9 Score PHQ-9: Total score 0 07/09/24 08:44 Depression Screening Interpretation: Negative Thrive Assessment: Date of Thrive Assessment Date Thrive assessed 07/09/24 07/09/24 08:34 Currently or been in a relationship where the following occur: No concerns reported Coding Level of Care Code Est Pt Level 4 (20693) Est Pt Prev Care 40-64y(38336) Diagnoses Encounter for general adult medical examination with abnormal findings Z00.01 Chronic right shoulder pain M25.511; G89.29 Chronicity: chronic Grade I hemorrhoids K64.0 Hemorrhoid type: first degree Anemia in other chronic diseases classified elsewhere D63.8 Anemia type: other cause Other causes of anemia: chronic disease, other Anxiety, generalized F41.1 Alcoholism F10.20 Additional Codes HAYLEE-7 Assessment Billing - HAYLEE-7 Assessment Tool: HAYLEE-7 Assessment 94339 ([id number]) PHQ-9 - 40239 - PHQ-9 Billing: Yes ([id number]) Assessment & Plan Assessment & Plan (1) Encounter for general adult medical examination with abnormal findings: Code(s): Z00.01 - Encounter for general adult medical examination with abnormal findings Category: Medical (2) Shoulder pain, right: Code(s): M25.511 - Pain in right shoulder Category: Medical Qualifiers: Chronicity: chronic Qualified Code(s): M25.511 - Pain in right shoulder; G89.29 - Other chronic pain (3) Hemorrhoids: Code(s): K64.9 - Unspecified hemorrhoids Category: Medical Qualifiers: Hemorrhoid type: first degree Qualified Code(s): K64.0 - First degree hemorrhoids (4) Anemia: Code(s): D64.9 - Anemia, unspecified Category: Medical Qualifiers: Anemia type: other cause Other causes of anemia: chronic disease, other Qualified Code(s): D63.8 - Anemia in other chronic diseases classified elsewhere (5) Anxiety, generalized: Code(s): F41.1 - Generalized anxiety disorder Category: Medical (6) Alcoholism: Code(s): F10.20 - Alcohol dependence, uncomplicated Category: Medical Plan - The patient is a 59-year-old male presenting with the primary reason for a routine physical examination. - Previously experienced a shoulder injury due to a fall on ice in May, resulting in soreness and limited motion, particularly when extending above lateral positions. - Diagnosed with anxiety disorder, which has been consistently managed over the past six months without symptoms of exacerbation. - Has a history of neuropathy, primarily affecting the feet, managed with gabapentin. - Reports hemorrhoidal bleeding, prescription provided for management of flare- ups. - Exhibits mild anemia noted from previous laboratory results in April. - Recently experienced a gastrointestinal illness with symptoms of vomiting and diarrhea, leading to the rescheduling of a colonoscopy. Health Maintenance - Tdap vaccine received in 2020, up to date. - Undergone lab work in April: slight anemia noted, electrolytes, kidney functions, blood sugar, and liver enzymes normal. - LDL cholesterol recorded at 76 from last year's test, indicating no cholesterol management requirement. - Patient has ceased alcohol consumption for the last six months and stopped using marijuana altogether. - Recommended utilization of multivitamins with iron for anemia. Diagnostic results - Labs: Slight anemia noted from April; normal electrolytes, kidney functions, blood sugar, and liver enzymes. Patient Instructions - Continue efforts to reschedule the colonoscopy. - Consider physical therapy for shoulder injury to aid in recovery and regain motion. Order placed - Maintain current use of prescribed medications. - Ensure adequate intake of multivitamins with iron to address anemia. - Schedule appointments directly with the physical therapy department. Orders: Orders PT Evaluation and Treatment Today M25.511 - Pain in right shoulder LDL Cholesterol Direct Today D63.8 - Anemia in other chronic diseases classified elsewhere, F10.20 - Alcohol dependence, uncomplicated, F41.1 - Ge neralized anxiety disorder, K64.0 - First degree hemorrhoids Complete Blood Count Auto Diff Today D63.8 - Anemia in other chronic diseases classified elsewhere, F10.20 - Alcohol dependence, uncomplicated, F41.1 - Generalized anxiety disorder, K64.0 - First degree hemorrhoids Comprehensive Met. Panel Today D63.8 - Anemia in other chronic diseases classified elsewhere, F10.20 - Alcohol dependence, uncomplicated, F41.1 - Generalized anxiety disorder, K64.0 - First degree hemorrhoids Ethanol Today D63.8 - Anemia in other chronic diseases classified elsewhere, F10.20 - Alcohol dependence, uncomplicated, F41.1 - Generalized anxiety disorder, K64.0 - First degree hemorrhoids
[2024-07-09 08:29] VITALS: BP 118/78; PULSE 96; O2SAT 93; BMI 26.8
== END 2024-07-09 08:48 | disposition home or self-care (01) ==
LOC: HO.HMCC 08:25
PROVIDERS: PCP Internal Medicine; Visit Provider Internal Medicine
DX: Z00.01 Encounter for general adult medical examination with abnormal findings (principal); M25.511 Pain in right shoulder; F10.20 Alcohol dependence, uncomplicated; G89.29 Other chronic pain; K64.0 First degree hemorrhoids; D63.8 Anemia in other chronic diseases classified elsewhere; F41.1 Generalized anxiety disorder

== ENCOUNTER → 2024-07-09 08:24 | Outpatient (BNVA) | payer OTHER, SELFPAY | PROVIDERS: PCP Internal Medicine; Visit Provider Internal Medicine | DX: Z00.01 Encounter for general adult medical examination with abnormal findings (principal); M25.511 Pain in right shoulder; G89.29 Other chronic pain; K64.0 First degree hemorrhoids; D63.8 Anemia in other chronic diseases classified elsewhere; F41.1 Generalized anxiety disorder; F10.20 Alcohol dependence, uncomplicated | CPT/HCPCS: 96127 ==

== ENCOUNTER 2024-08-19 15:00 | Outpatient (RCR) | payer OTHER, SELFPAY ==
--- NOTE | 2024-07-21 13:42 | MHC.PT.EP ---
[facility] [place] Office [place] Office [place] Office [address] Reba Jones [address] [phone] F: [phone] F: [phone] F: [phone] F: [phone] Physical Therapy Plan of Care Date of Evaluation: 07/21/24 Date of Surgery: n/a Diagnosis: pain in R shoulder Assessment: Patient is a 59 year old male presenting to PT with complaints of pain in his R shoulder. Pt reports onset of pain began 2 months ago due to slip and fall on ice. He presents today with impairments in pain, ROM, shoulder strength, posture, tenderness to palpation. 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 Pt expresses assisted goal of reducing pain, and is motivated to work towards this in PT. Clinical presentation today is most consistent with signs and sx associated with R shoulder pain and pt will benefit from skilled PT 2 week x 4 weeks to address the following problems and impairments noted upon evaluation: pain, ROM, shoulder strength, posture, tenderness to palpation. These problems limit the patient with the following functional activities: reaching, lifting, work, ADLs. The prescribed treatment plan of care is medically necessary. Co-morbidities of anxiety, depression were identified and taken into considerations of plan of care. Pt was educated on HEP, role of PT, prognosis, POC. Frequency and Duration: The patient will be seen 2 x week x 4 weeks Short Term Goals: Pt will demonstrate symmetrical pain free ROM in 2 weeks. Pt will demonstrate 5/5 strength on R in 2 weeks. Pt will demonstrate min to no cues for posture during session in 2 weeks. Manager Corporate Responsibility Goals: Pt will demonstrate improved SPADI score by 13 points in 4 weeks for improved functional mobility. Pt will demonstrate ability to reach and lift with min to no pain in 4 weeks for return to PLOF. Pt will demonstrate ability to dress with min to no pain in 4 weeks for improved tolerance to ADLs. Treatment Plan: Modalities to reduce pain, spasms and effusion. Manual therapy to restore motion and function. Therapeutic exercise to improve strength and flexibility. Neuromuscular re-education for posture and balance. Therapeutic activities to return to functional activities of daily living. Electronically signed by: Karli Oconnor, PT, DPT, ATC Please sign and return to therapist. Thank you for your referral.
--- NOTE | 2024-09-22 06:17 | MHC.PT.DC ---
[facility] [place] [facility] [place] [facility] [place] [facility] [address] Reba Jones [address] [phone] F: [phone] F: [phone] F: [phone] F: [phone] Physical Therapy Discharge Report Diagnosis: pain in R shoulder Date of Surgery: n/a Date of Evaluation: 07/21/24 Date of Discharge: 09/22/24 Treatments to Date: 5 Cancellations to Date: No Shows to Date: Discharge Status: Improved Function Discharge Summary: Pt was placed on 30 day hold while he transitioned to HEP. He has not called to be scheduled in > 30 days so therefore to be d/c. Electronically signed by: Karli Oconnor, PT, DPT, ATC Please sign and return to therapist. Thank you for your referral.
== END 2024-09-22 06:17 | disposition home or self-care (01) ==
LOC: HO.PTCHIC 15:00
PROVIDERS: PCP Internal Medicine; Visit Provider Internal Medicine
DX: M25.511 Pain in right shoulder (principal)
CPT/HCPCS: 97110; 97161

== ENCOUNTER 2024-08-20 09:58 | Day surgery (SDC) | payer OTHER, SELFPAY ==
[2024-08-18 14:01] VITALS: BMI 26.8
--- NOTE | 2024-08-19 10:55 | HO.ANESPROP2 ---
Documented by User: Alberta Mccoy NP 08/19/24 10:55 HPI - Anesthesia Eval Consult details Narrative: 59yo M for Upper Endoscopy and Colonoscopy PMFSH Active Problems Active Problems: All Active Problems Shoulder pain, right (Acute) Marijuana dependence (Acute) Pruritic rash (Acute) Impaired fasting blood sugar (Acute) Hemorrhoids (Acute) Anemia (Acute) Upper respiratory tract infection (Acute) Contact with and (suspected) exposure to other viral communicable diseases (Acute) Viral illness (Acute) LFT elevation (Acute) Colon cancer screening (Acute) Encounter for general adult medical examination with abnormal findings (Acute) Alcohol abuse with intoxication (Acute) Syncope and collapse (Acute) Alcoholism (Acute) Fatigue (Acute) Paresthesia of left arm (Acute) Anxiety, generalized (Acute) Past Medical History Medical History Tobacco use disorder Marijuana dependence Nerve pain Anxiety and depression Family History Family History Father CAD (coronary artery disease) Other Mental health disorder Substance use disorder Family history of problems with anesthesia: No Surgical History Surgical History Hx of colonoscopy History of Problems with Anesthesia: No Social History Social History Housing: House Are you a primary career development facilitator to a significant other at home: No Do you presently have visiting nurse or other home services: No Alcohol intake: current Alcohol intake frequency: a few times a week Alcohol type: beer Patient Tobacco Use Status: Former Tobacco user e-Cigarette/Vaping Use: Never Used Use of substances other than those prescribed or required for medical reasons: No Substance Use Type: Marijuana Have you been hit, kicked, punched, or otherwise hurt by someone within the past year? If so, by whom?: No Are you DNR?: No Advance Directives: No Advance Directives Information Provided: Yes Advance Directives on File: No Poor oral hygiene: No service: No Current occupational status: employed Cognitive needs: No Hearing needs: No Vision needs: Yes Meds Allergies Allergy/AdvReac Type Severity Reaction Status Date / Time No Known Allergies (NO KNOWN Allergy Unknown UNKNOWN Verified 07/09/24 08:34 ALLERGIES) Exam Height,Weight and Vital Signs: Height 5 ft 8 in Weight 80.059 kg Assessment and Plan Assessment Anesthesia Assessment: Chart Reviewed Final Anesthetic Review Family History of Problems with Anesthesia: No History of Problems with Anesthesia: No Documented by User: Dinora Serra MD 08/20/24 11:50 PMFSH Past Medical History Medical History Tobacco use disorder Marijuana dependence Nerve pain Anxiety and depression Family History Family History Father CAD (coronary artery disease) Other Mental health disorder Substance use disorder Surgical History Surgical History Hx of colonoscopy Social History Social History Housing: House Are you a primary career development facilitator to a significant other at home: No Do you presently have visiting nurse or other home services: No Alcohol intake: current Alcohol intake frequency: a few times a week Alcohol type: beer Patient Tobacco Use Status: Former Tobacco user e-Cigarette/Vaping Use: Never Used Use of substances other than those prescribed or required for medical reasons: No Substance Use Type: Marijuana Have you been hit, kicked, punched, or otherwise hurt by someone within the past year? If so, by whom?: No Are you DNR?: No Advance Directives: No Advance Directives Information Provided: Yes Advance Directives on File: No Poor oral hygiene: No service: No Current occupational status: employed Cognitive needs: No Hearing needs: No Vision needs: Yes Meds Allergies Allergy/AdvReac Type Severity Reaction Status Date / Time No Known Allergies (NO KNOWN Allergy Unknown UNKNOWN Verified 07/09/24 08:34 ALLERGIES) Exam Airway Mallampati Class: II TM Dist: >3cm Neck ROM: Full Heart: rrr Lungs: cta Assessment and Plan Assessment Anesthesia Assessment: Anesthesia Plan Discussed Final Anesthetic Review NPO: Yes ASA Class: II Final Preanesthetic Review: No Changes in Pt Med Stat, Meds/Allgs Chart Reviewed, Consent Obtained/Reviewed and Anes Risks/Benef Reviewed Patient Risk: Low Procedure Risk: Low Anesthetic Plan Anesthetic Plan: MAC: Disposition: Standard PACU
[2024-08-20 10:27] VITALS: BMI 26.2
[2024-08-20 10:52] VITALS: BP 117/90; PULSE 69; RESP 18; TEMP 36; O2SAT 100
[2024-08-20] MEDS: Lactated Ringers 1,000 ML 100 ML IVCONT (10:52)
--- NOTE | 2024-08-20 11:10 | MHC.SHP ---
Pre-Procedural Eval Section A - 24 Hr Update-Section A only Date of Service: 08/20/24 Section B - Complete if H&P > 30 days Chief Complaint: screening Relevant Family History (Specify if Yes): No Relevant Social History: Tobacco Use Present Medications: see Short Stay Collaborative assessment Medical History: Significant History (Nerve pain Anxiety and depression) History of Previous Operations: Relevant previous surgery/procedure and date(s) ( Hx of colonoscopy) Allergies: Allergies Allergy/AdvReac Type Severity Reaction Status Date / Time No Known Allergies (NO KNOWN Allergy Unknown UNKNOWN Verified 07/09/24 08:34 ALLERGIES) Review of Systems Sugical H&P ROS: Negative: Constitution, Cardiovascular, Respiratory, Neurological, Psychiatric, Hem-Onc, Allergic/Immunologic, Gastrointestinal, Genitourinary, Musculoskeletal, Integumentary, Endocrine and Eyes/Ears/Nose/Throat Exam Surgical H&P Exam: Normal: HEENT, Normal: Heart, Normal: Lungs, Normal: Extremities, Normal: Abdomen, Normal: Skin and Normal: Neurological Plan Diagnosis/Plan: Unchanged I have reviewed the history and physical and performed a pertinent physical examination on my patient. No changes have occurred unless specified. Time Spent With Patient Time: Total time managing care of this patient today ____ minutes.
--- NOTE | 2024-08-20 11:43 | HO.OPN-COLON ---
Colonoscopy Operative Note Operative Note Date of Service: 08/20/24 Narrative: Operative Information Procedure Description: Colonoscopy Indication: screening Anesthesia: MAC COLONOSCOPY Instrument: Olympus variable stiffness pediatric scope 190L Colonoscopy Monitoring: Vital signs and clinical assessment, continuous EKG monitoring, Pulse oximetry, Carbon Dioxide monitoring and blood pressure monitoring were done throughout the procedure. Colon withdrawal time was 13 minutes. Procedure: The patient was placed in the left lateral decubitis position and pre-procedure medications were administered. After a digital rectal examination of the ano-rectum, the video colonoscope was inserted into the rectum and advanced through the colon to the cecum/TI. The colonoscope was slowly withdrawn in a retrograde panoramic fashion and the colon mucosa was carefully examined including a retroflexed view of the rectum. Findings and interventions are described below. Procedure Difficulty: easy Findings: Terminal Ileum-normal Cecum:normal Right sided retroflexion- x 1 sessile polyp 5-6 mm removed with cold forceps Ascending Colon: x1 sessile polyp 5 mm removed with cold forceps Transverse Colon -normal Descending Colon:normal Sigmoid Colon: x 1 sessile polyp 5-6 mm removed with cold forceps Rectum: Retroflexion with small internal hemorrhoids seen, grade I Anorectum - normal Intervention: cold forceps Colon preparation: [place] Bowel Preparation Scale Right colon; 2 Transverse colon: 2 Left colon; 2 (0 = Unprepared colon segment with mucosa not seen due to solid stool that cannot be cleared. 1 = Portion of mucosa of the colon segment seen, but other areas of the colon segment not well seen due to staining, residual stool and/or opaque liquid. 2 = Minor amount of residual staining, small fragments of stool and/or opaque liquid, but mucosa of colon segment seen well. 3 = Entire mucosa of colon segment seen well with no residual staining, small fragments of stool or opaque liquid) Impression and Post Procedure Diagnosis: colon polyps x 3 internal hemorrhoids Plan: High fiber diet leaflet Avoid straining at stool, epsom salts and sitz bath, anusol supps or cream Repeat Colonoscopy in 5-6 years if adenomatous polyps, 10 yrs if hyperplastic or earlier if clinically indicated Above findings were reviewed with the patient and relevant handouts were provided if indicated.
[2024-08-20 11:50] VITALS: BP 109/73; PULSE 83; RESP 17; TEMP 36.6; O2SAT 98
[2024-08-20 12:05] VITALS: BP 128/84; PULSE 72; RESP 16; TEMP 36.6; O2SAT 96
== END 2024-08-20 12:25 | disposition home or self-care (01) ==
PROVIDERS: PCP Internal Medicine; Visit Provider Internal Medicine Gastroenterology
PROC: 0DJD8ZZ Inspection of Lower Intestinal Tract, Via Natural or Artificial Opening Endoscopic (ICD-10-PCS; CPT 45378; principal; 2024-08-20 12:50)
DX: Z12.11 Encounter for screening for malignant neoplasm of colon (principal); D12.2 Benign neoplasm of ascending colon; K64.0 First degree hemorrhoids; F12.20 Cannabis dependence, uncomplicated; F41.1 Generalized anxiety disorder; D64.9 Anemia, unspecified; F17.200 Nicotine dependence, unspecified, uncomplicated
CPT/HCPCS: 45380; 88305; J2003; J2250; J2704

== ENCOUNTER → 2024-08-20 09:58 | Outpatient (BNV) | payer OTHER, SELFPAY | PROVIDERS: PCP Internal Medicine; Visit Provider Internal Medicine Gastroenterology | DX: Z12.11 Encounter for screening for malignant neoplasm of colon (principal); K63.5 Polyp of colon; K64.8 Other hemorrhoids | CPT/HCPCS: 45380 ==

== ENCOUNTER 2025-01-06 08:19 | Outpatient (AMB) | payer OTHER, SELFPAY ==
[2025-01-06 08:29] VITALS: BP 118/82; PULSE 80; O2SAT 97; BMI 26.9
--- NOTE | 2025-01-06 08:29 | A.OFFPC_ITS ---
Vital Signs 01/06/25 08:29 Height 5 ft 8 in Weight 177 lb BMI 26.9 BP 118/82 Blood Pressure Location Rt brachial Position Sitting Pulse 80 Pulse Source Pulse Oximeter Pulse Oximetry (%) 97 Intake Visit Reasons: 6m follow up Allergies No Known Allergies (NO KNOWN ALLERGIES) Allergy (Unknown, Verified 01/06/25 08:31) UNKNOWN Medication List - Last Reconciled 01/06/25 by Dirk Cardoza MD gabapentin 100 mg PO BEDTIME 90 days sertraline 100 mg PO .qd 90 days Tobacco use date assessed: 07/09/24 Dental Screening Dental Screen Date: 07/09/24 HPI 6m follow up HPI Details History of Present Illness The patient is a 59-year-old male presenting for a follow-up visit for chronic condition management. Anxiety: - The patient's anxiety is managed with sertraline 100 mg and is reported to be better, with the patient feeling at ease and comfortable. - He has not experienced any exacerbatio ns of his symptoms. Peripheral Neuropathy: - The patient experiences neuropathy in his feet, which he describes as coming and going. - Lately, symptoms have been more active and have been bothering him. - He takes gabapentin 100 mg regularly, which he finds effective. Hemorrhoids: - He was prescribed a cream following a past colonoscopy, which alleviates the condition fairly well. - He reports no current exacerbation of his hemorrhoids. Microcytic anemia: - A CBC from April showed mild microc ytic anemia. - Following a suggestion, he has started taking iron supplements. Hypertension: - His blood pressure is well-controlled with a reading of 118/82 mmHg. Alcohol use: - The patient reports he has not had alc ohol in almost exactly one year. - He notes that since abstaining from al cohol, his bowel movements are more regular and he feels better. - He has been staying busy and working [employer], which he finds helpful. Medical History: - Anxiety, managed with sertraline. - Peripheral neuropathy, managed with ga bapentin. - Hemorrhoids. - Microcytic anemia. - Alcohol use disorder, in remission for one year. - History of colonoscopy. Medications: - Sertraline 100 mg for anxiety. - Gabapentin 100 mg for neuropathy. - Iron supplements for anemia. - Prescription cream for hemorrhoids. Social History: - Alcohol: Patient reports being abstine nt from alcohol for approximately one year. 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 - Activity: Patient reports he has been working more and staying busy, which has been beneficial. Diagnostic Results: - Labs from April: - CBC: Showed mild microcytic anemia. - Kidney function: Normal. - Electrolytes: Normal. - Glucose: Normal. - Liver enzymes: Normal. Problem List - Anxiety - Peripheral neuropathy - Hemorrhoids - Microcytic anemia - Hypertension - History of alcohol use - Preventative Care: Immunizations - Preventative Care: Lab monitoring Plan - The patient will proceed with blood te sts today; the order was placed in July and is still valid. - Continue sertraline 100 mg for anxiety . - Continue gabapentin 100 mg for neuropa thy. - Continue iron supplements for anemia, with labs to be repeated to monitor. - The patient will receive his flu and C OVID-19 vaccines at a pharmacy appointment scheduled for after this visit. - The patient has a follow-up appointmen t already scheduled for July. Review of Systems - General: No fever no chills - Neurological: No headaches no dizziness - Ear nose throat: No sore throat no hearing difficulty no ear pain - Cardiovascular: No syncope, no chest pain, no palpitations - Gastrointestinal: No nausea vomiting or diarrhea - Endocrine: No polyuria polydipsia no heat intolerance - Genitourinary: No dysuria , no blood in urine Physical Exam General: No acute distress HEENT: No acute findings Neck: Supple Respiratory system: Able to talk in full sentences, no audible wheeze Cardiovascular: S1-S2 regular in rate and rhythm Gastrointestinal: No pain, bowel movements are more regular Extremities: No new findings 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 awake oriented x3 motor intact Skin: Normal turgor PFSH Medical History Tobacco use disorder Marijuana dependence Nerve pain Anxiety and depression Surgical History Hx of colonoscopy Family History Father CAD (coronary artery disease) Other Mental health disorder Substance use disorder Social History Housing: House Are you a primary child day care provider to a significant other at home: No Do you presently have visiting nurse or other home services: No Alcohol intake: current Alcohol intake frequency: a few times a week Alcohol type: beer Patient Tobacco Use Status: Former Tobacco user e-Cigarette/Vaping Use: Never Used Substance Use Type: Marijuana service: No Current occupational status: employed Cognitive needs: No Hearing needs: No Vision needs: Yes Questionnaire PHQ-9 Over the last 2 weeks, how often have you been bothered by any of the following problems? 1. Little interest or pleasure in doing things: not at all 2. Feeling down, depressed, or hopeless: not at all 3. Trouble falling or staying asleep, or sleeping too much: not at all 4. Feeling tired or having little energy: not at all 5. Poor appetite or overeating: not at all 6. Feeling bad about yourself - or that you are a failure or have let yourself or your family down: not at all 7. Trouble concentrating on things, such as reading the newspaper or watching television: not at all 8. Moving or speaking so slowly that other people could have noticed. Or the opposite - being so fidgety or restless that you have been moving around a lot more than usual: not at all 9. Thoughts that you would be better off or of hurting yourself in some way: not at all Total score: 0 Depression Screening Interpretation: Negative Depression Screening Done: Yes 75594 - PHQ-9 Billing: Yes Source: Developed by Drs. Kyle Acevedo, Esperanza Childers, Yordan Carr and colleagues, with an educational sheila from [employer]. Thrive Questionnaire Date Thrive assessed: 07/09/24 I am a: Patient What is your living situation today?: I have a steady place to live Within the past 12 months, did the food you bought not last and you didn't have the money to get more?: Never true Within the past 12 months, did you worry whether your food would run out before you got money to buy more?: Never true Do you have trouble paying for medicines?: No Do you have trouble getting transportation to medical appointments?: No Do you have trouble paying your heating and electricity bill?: No Do you have trouble taking care of your child, family member or friend?: No Do you have trouble with day-to-day activities such as bathing, preparing meals, shopping, managing finances, etc.?: No Are you currently unemployed and looking for a job?: No Are you interested in more education?: No Please select the resources that you would like help with: None Currently or been in a relationship where the following occur: No concerns reported THRIVE Score: 0 AUDIT C Alcohol Use Questionnaire (AUDIT-C) 1. How often do you have a drink containing alcohol?: 2-3 times a week 2. How many drinks containing alcohol do you have on a typical day when you are drinking?: 5 or 6 3. How often do you have six or more drinks on one occasion?: Weekly Total Score: 8 HAYLEE-7 AMB Questionnaire HAYLEE-7 Date HAYLEE - 7 assessed: 07/09/24 Source: Developed by Drs. Kyle Acveedo, Esperanza Childers, Yordan Carr and colleagues, with an educational sheila from [employer]. Physical exam (Primary Care) Vital Signs: Last Vital Signs Pulse 80 01/06/25 08:29 BP 118/82 01/06/25 08:29 Pulse Ox 97 01/06/25 08:29 BMI result Body Mass Index 26.9 Tobacco/Smoking Status: Tobacco use Status Tobacco use date assessed 07/09/24 01/06/25 08:33 Patient Tobacco Use Status Former Tobacco user 01/06/25 08:33 e-Cigarette/Vaping Use Never Used 01/06/25 08:33 PHQ-9: PHQ-9 Score PHQ-9: Total score 0 01/06/25 08:33 Depression Screening Interpretation: Negative Thrive Assessment: Date of Thrive Assessment Date Thrive assessed 07/09/24 01/06/25 08:33 Currently or been in a relationship where the following occur: No concerns reported Coding Level of Care Code Est Pt Level 4 (45151) Diagnoses Anemia in other chronic diseases classified elsewhere D63.8 Anemia type: other cause Other causes of anemia: chronic disease, other Anxiety, generalized F41.1 Neuropathy of both feet G57.93 Additional Codes PHQ-9 - 05454 - PHQ-9 Billing: Yes ([id number]) Assessment & Plan Assessment & Plan (1) Anemia: Code(s): D64.9 - Anemia, unspecified Category: Medical Qualifiers: Anemia type: other cause Other causes of anemia: chronic disease, other Qualified Code(s): D63.8 - Anemia in other chronic diseases classified elsewhere (2) Anxiety, generalized: Code(s): F41.1 - Generalized anxiety disorder Category: Medical (3) Neuropathy of both feet: Code(s): G57.93 - Unspecified mononeuropathy of bilateral lower limbs Category: Medical Plan Anxiety: - The patient's anxiety is managed with sertraline 100 mg and is reported to be better, with the patient feeling at ease and comfortable. - He has not experienced any exacerbations of his symptoms. Peripheral Neuropathy: - The patient experiences neuropathy in his feet, which he describes as coming and going. - Lately, symptoms have been more active and have been bothering him. - He takes gabapentin 100 mg regularly, which he finds effective. Hemorrhoids: - He was prescribed a cream following a past colonoscopy, which alleviates the condition fairly well. - He reports no current exacerbation of his hemorrhoids. Microcytic anemia: - A CBC from April showed mild microcytic anemia. - Following a suggestion, he has started taking iron supplements. Hypertension: - His blood pressure is well-controlled with a reading of 118/82 mmHg. Alcohol use: - The patient reports he has not had alcohol in almost exactly one year. - He notes that since abstaining from alcohol, his bowel movements are more regular and he feels better. - He has been staying busy and working more, which he finds helpful. Medical History: - Anxiety, managed with sertraline. - Peripheral neuropathy, managed with gabapentin. - Hemorrhoids. - Microcytic anemia. - Alcohol use disorder, in remission for one year. - History of colonoscopy. Medications: - Sertraline 100 mg for anxiety. - Gabapentin 100 mg for neuropathy. - Iron supplements for anemia. - Prescription cream for hemorrhoids. Social History: - Alcohol: Patient reports being abstinent from alcohol for approximately one year. 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 - Activity: Patient reports he has been working more and staying busy, which has been beneficial. Diagnostic Results: - Labs from April: - CBC: Showed mild microcytic anemia. - Kidney function: Normal. - Electrolytes: Normal. - Glucose: Normal. - Liver enzymes: Normal. Problem List - Anxiety - Peripheral neuropathy - Hemorrhoids - Microcytic anemia - Hypertension - History of alcohol use - Preventative Care: Immunizations - Preventative Care: Lab monitoring Plan - The patient will proceed with blood tests today; the order was placed in July and is still valid. - Continue sertraline 100 mg for anxiety. - Continue gabapentin 100 mg for neuropathy. - Continue iron supplements for anemia, with labs to be repeated to monitor. - The patient will receive his flu and COVID-19 vaccines at a pharmacy appointment scheduled for after this visit. - The patient has a follow-up appointment already scheduled for July.
== END 2025-01-06 08:50 | disposition home or self-care (01) ==
LOC: HO.HMCC 08:19
PROVIDERS: PCP Internal Medicine; Visit Provider Internal Medicine
DX: F41.1 Generalized anxiety disorder (principal); G57.93 Unspecified mononeuropathy of bilateral lower limbs; D63.8 Anemia in other chronic diseases classified elsewhere

== ENCOUNTER → 2025-01-06 08:19 | Outpatient (BNVA) | payer OTHER, SELFPAY | PROVIDERS: PCP Internal Medicine; Visit Provider Internal Medicine | DX: I10 Essential (primary) hypertension (principal); F41.9 Anxiety disorder, unspecified; K64.9 Unspecified hemorrhoids; D64.9 Anemia, unspecified; D63.8 Anemia in other chronic diseases classified elsewhere; F41.1 Generalized anxiety disorder; G57.93 Unspecified mononeuropathy of bilateral lower limbs | CPT/HCPCS: 96127 ==

== ENCOUNTER 2025-01-19 07:12 | Outpatient (REF) | payer OTHER, SELFPAY ==
[2025-01-19 10:15] LABS: MANUAL DIFF FLAG NO
[2025-01-19 10:36] LABS: Hematocrit 39.7 % (42.0-52.0); Hemoglobin 13.7 g/dl (14.0-18.0); Imm Gran Abs Auto 0.02 X10*3/uL (0.00-0.03); Imm Gran Pct Auto 0.3 % (0.0-0.4); Lymphocytes Absolute Auto 1.8 X10*3/uL (1.2-4.9); Mean Corpuscular HGB Conc 34.5 g/dl (31.0-36.0); Mean Corpuscular Hemoglobin 32.9 pg (27.0-33.0); Mean Corpuscular Volume 95.2 fL (80.0-98.0); NRBC Abs Auto 0.000 X10*3/uL (0.0-0.012); NRBC Pct Auto 0.0 /100WBC (0.0-0.2); Platelet Count 205 X10*3/uL (160-400); Red Blood Count 4.17 X10*6/uL (4.60-5.80); White Blood Count 6.4 X10*3/uL (4.8-10.8)
[2025-01-19 10:55] LABS: Alanine Aminotransferase 37 U/L (0-40); Albumin Level 4.5 g/dL (3.5-5.0); Alkaline Phosphatase 73 U/L (39-117); Anion Gap 12 (12-20); Aspartate Amino Transferase 35 U/L (5-37); Blood Urea Nitrogen 22 mg/dL (9-16); Calcium 9.1 mg/dL (8.4-10.2); Carbon Dioxide 24 mmol/L (22-29); Chloride 107 mmol/L (96-108); Estimated Glomerular Filt Rate > 60; Potassium 3.7 mmol/L (3.3-5.1); Sodium 139 mmol/L (135-145); Total Protein 7.1 g/dL (6.5-8.0)
== END 2025-01-19 07:13 | disposition home or self-care (01) ==
LOC: HO.HMGCLDS 07:12
PROVIDERS: PCP Internal Medicine; Visit Provider Internal Medicine
DX: K64.0 First degree hemorrhoids (principal); F41.1 Generalized anxiety disorder; F10.20 Alcohol dependence, uncomplicated; D63.8 Anemia in other chronic diseases classified elsewhere
CPT/HCPCS: 36415; 80053; 80307; 83721; 85025